=== PATIENT | female | born 1955 | race Caucasian/White ===

== ENCOUNTER 2017-11-30 04:12 | Emergency (ER) | payer MEDICARE ==
[~2017-11-30] VITALS: Ht 154.9 cm; Wt 63.5 kg
[~2017-11-30 04:12] MED LIST: AMLO10 PO; ATEN100 PO; ATEN50; FLUO10; FLUO20 PO; HYDACE5 PO; INSDET100 SQ; INSUASPI; INSUASPI SC; INSULANI; METF500; METF500 PO; NAPR500 PO; NITR100CA PO; RXHYDACE PO; SPIHYD; SPIHYD PO; TRAM50 PO; [UNRECOGNIZED DRUG - OTHER]
[2017-11-30] MEDS ORDERED: AMLO10 PO (04:36)
[2017-11-30] MEDS ORDERED: GABA300 PO (04:36)
[2017-11-30] MEDS ORDERED: MONT10T PO (04:36)
[2017-11-30] MEDS ORDERED: LISI5 PO (04:36)
[2017-11-30] MEDS ORDERED: METF500 PO (04:36)
[2017-11-30] MEDS ORDERED: PANT40 PO (04:36)
[2017-11-30] MEDS ORDERED: MELO7.5 PO (04:36)
[2017-11-30] MEDS ORDERED: LEVSOD50 PO (04:37)
[2017-11-30] MEDS ORDERED: CITA20 PO (04:37)
[2017-11-30] MEDS ORDERED: Roxicodone5 MG (04:37)
[2017-11-30] MEDS ORDERED: BACL10 (04:38)
[2017-11-30] MEDS ORDERED: ALBU90OI INH (04:38)
[2017-11-30] MEDS ORDERED: OXYC1TAB11 PO (04:38)
[2017-11-30] MEDS ORDERED: Norco 10-325 T1 EACH PO (06:23)
== END 2017-11-30 06:33 | disposition home or self-care (01) ==
LOC: ER 04:12
DX: M54.5 Low back pain (principal); G89.29 Other chronic pain; E11.9 Type 2 diabetes mellitus without complications; I10 Essential (primary) hypertension; F32.9 Major depressive disorder, single episode, unspecified; F17.200 Nicotine dependence, unspecified, uncomplicated
CPT/HCPCS: 72100; 99283

== ENCOUNTER 2017-12-09 14:12 | Emergency (ER) | payer MEDICARE ==
[~2017-12-09] VITALS: Ht 152.4 cm; Wt 65.8 kg
[~2017-12-09 14:12] MED LIST changes: +ALBU90OI INH; +BACL10; +CITA20 PO; +GABA300 PO; +LEVSOD50 PO; +LISI5 PO; +MELO7.5 PO; +MONT10T PO; +Norco 10-325 T1 EACH PO; +OXYC1TAB11 PO; +PANT40 PO; +Roxicodone5 MG
[2017-12-09] MEDS ORDERED: Ultram50 MG PO (15:24)
== END 2017-12-09 15:31 | disposition home or self-care (01) ==
LOC: ER 14:12
DX: M54.5 Low back pain (principal); G89.29 Other chronic pain; Z76.0 Encounter for issue of repeat prescription; Z88.2 Allergy status to sulfonamides; Z79.899 Other long term (current) drug therapy; Z79.84 Long term (current) use of oral hypoglycemic drugs; Z79.2 Long term (current) use of antibiotics; Z79.891 Long term (current) use of opiate analgesic; E11.9 Type 2 diabetes mellitus without complications; I10 Essential (primary) hypertension; F32.9 Major depressive disorder, single episode, unspecified; F17.200 Nicotine dependence, unspecified, uncomplicated
CPT/HCPCS: 99282

== ENCOUNTER 2018-12-20 22:24 | Inpatient (IN) | payer MEDICARE, OTHER ==
[~2018-12-20] VITALS: Ht 149.9 cm; Wt 68.0 kg
[~2018-12-20 22:24] MED LIST changes: +METF500C PO; +Ultram50 MG PO
[2018-12-20 23:20] LABS: BASOPHILS ABSOLUTE AUTO 0.06 K/mm3 (0.00-0.23); BASOPHILS PERCENT AUTO 1 % (0-2); EOSINOPHILS ABSOLUTE AUTO 0.07 K/mm3 (0.00-0.68); EOSINOPHILS PERCENT AUTO 1 % (0-6); Hematocrit 33.8 % (33.0-51.0); Hemoglobin 11.1 g/dL (11.5-16.0); IMMATURE GRAN ABSOLUTE AUTO 0.06 K/mm3 (0.00-0.10); IMMATURE GRAN PERCENT AUTO 1 % (0-1); LYMPHOCYTES ABSOLUTE AUTO 1.08 K/mm3 (0.84-5.20); LYMPHOCYTES PERCENT AUTO 14 % (21-46); MONOCYTES ABSOLUTE AUTO 0.94 K/mm3 (0.16-1.47); MONOCYTES PERCENT AUTO 12 % (4-13); Mean Corpuscular HGB 35.1 pg (26.0-34.0); Mean Corpuscular HGB Conc 32.8 g/dL (31.5-36.5); Mean Corpuscular Volume 107 fL (80-100); Mean Platelet Volume 9.8 fL (9.1-12.4); NEUTROPHILS ABSOLUTE AUTO 5.39 K/mm3 (1.96-9.15); NEUTROPHILS PERCENT AUTO 71 % (41-73); Platelet Count 200 K/mm3 (150-400); RDW Coefficient Variation 12.1 % (11.7-14.2); Red Blood Cell Count 3.16 M/mm3 (3.80-5.20)
[2018-12-20 23:37] LABS: Alanine Aminotransfer (ALT/SGP 29 U/L (12-78); Albumin/Globulin Ratio 0.8 (0.8-1.8); Alk Phos 119 U/L (50-136); Anion Gap 6 mmol/L (6-16); Aspartate Aminotrans (AST/SGOT 29 U/L (12-37); Bilirubin, Total 0.5 mg/dL (0.1-1.0); Blood Urea Nitrogen 18 mg/dL (8-24); CO2, Blood 29 mmol/L (21-32); Calcium, Blood 8.1 mg/dL (8.5-10.1); Chloride, Blood 102 mmol/L (98-108); Creatinine, Blood 0.86 mg/dL (0.40-1.00); Globulin, Blood 3.6 g/dL (2.2-4.0); Glomerular Filtration Rate >60 (60-); Glucose, Blood 171 mg/dL (70-99); Potassium, Blood 3.8 mmol/L (3.5-5.5); Sodium, Blood 137 mmol/L (136-145); Total Protein, Blood 6.6 g/dL (6.4-8.2)
[2018-12-21 01:02] LABS: Source, Urine Clean Catch
[2018-12-21 01:10] LABS: Appearance, Urine Clear (Clear); Bilirubin, Urine Neg (Neg); Blood, Urine 2+ (Neg); Color, Urine Yellow (P-Yellow); Glucose Qualitative, Urine Neg (Neg); Ketones, Urine 1+ (Neg); Leukocyte Esterase, Urine 1+ (Neg); Nitrite, Urine Neg (Neg); Protein, Urine 1+ (Neg); Urobilinogen, Urine NORM (Normal)
[2018-12-21 01:18] LABS: Bacteria Rare /hpf; Red Blood Cells, Urine Rare /hpf (0-2); Squamous Epithelial Cells Few /hpf (Few); White Blood Cells, Urine 0-2 /hpf (0-5)
--- NOTE | 2018-12-21 03:00 | NUR ---
RECEIVED HAND OFF FROM ER NURSE USING SBAR. TRANSPORTED TO ROOM VIA STRETCHER. TRANSFERED TO BED WITH FULL STAFF ASSISTANCE, TOLERATED WELL. LYING IN SEMI FOWLERS WITH EYES CLOSED. PT IS SOMULENT WITH SPASTIC MOVEMENTS NOTED TO ALL LIMBS. ORIENTED TO ROOM, CALL SYSTEM, AND POC, VOICES UNDERSTNDING. SL 20G PIV TO RIGHT HAND IS PATENT, FLUSHING WITH EASE. LEFT HAND 22G SL PIV IS PATENT, FLUSHING WITH EASE. CONTINENT OF BOWEL AND BLADDER, USES BEDPAN. DENIES PAIN, DISCOMFORT, OR FURTHER NEEDS AT THIS TIME. ADMISSION ASSESSMENT IN PROGRESS. SAFETY MEASURES IN PLACE. WILL CONTINUE TO MONITOR.
--- NOTE | 2018-12-21 06:40 | NUR ---
LYING IN LOW FOWLERS WITH EYES CLOSED. PAIN IS NOW MANAGED AFTER IV FENTANYL. BEDDING CHANGED AFTER INCONTINENT EPISODES AND DEPENDS PLACED. DENIES FURTHER NEEDS AT THIS TIME. WILL GIVE HAND OFF TO ONCOMING SHIFT USING SBAR.
--- NOTE | 2018-12-21 08:54 | NUR ---
DR OJEDA HERE TO SEE PT.
--- NOTE | 2018-12-21 12:59 | NUR ---
PT OUT OF ROOM FOR PROCEDURE WITH OTHER STAFF IN BED.
--- NOTE | 2018-12-21 13:26 | NUR ---
History, Chart, Medications and Allergies reviewed before start of procedure. Patient confirms NPO status and agrees with scheduled surgery.
--- NOTE | 2018-12-21 15:30 | NUR ---
12/21/18 1530 Kanchan Restrepo [id number] ASSUMING CARE OF PT AT THIS TIME FROM LUIS ALFREDO MALONEY RN.
--- NOTE | 2018-12-21 17:32 | NUR ---
1720 DR SÁNCHEZ NOTIFIED OF CBG RESULT OF 265 NEW ORDER TO GIVE 10 UNITS OF REGULAR INSULIN
--- NOTE | 2018-12-21 17:35 | NUR ---
WIGGLES TOES CAP REFILL WNL
--- NOTE | 2018-12-21 18:06 | NUR ---
PT BACK TO ROOM FROM PACU PT IS DROWSY BUT WAKES WITH VERBAL STIMULI. PT REPORTS NO NAUSEA AT THIS TIME. KIANA WRAP WITH SPLINT TO LEFT LEG. PT CAN WIGGLE TOES AND HAS GOOD CAP REFIL TO LEFT TOES. PAS APPLIED TO RIGHT LEG. PT ON 4L O2 NC.
--- NOTE | 2018-12-21 18:19 | NUR ---
SHIFT SUMMARY PT VERY SLEEPY THIS MORNING. PT CONFUSED AT TIMES, BUT ORIENTED TO SELF/SITUATION. PT WENT TO SURGERY THIS AFTERNOON AND ARRIVED BACK AT ABOUT 1800. PT DROWSY, BUT AWAKES TO VERBAL STIMULI. REPORTS DISCOMFORT AT SURGICAL SITE BUT WENT RIGHT BACK TO SLEEP. PACU NURSE REPORTS THAT SURGERY WENT WELL. PT IS INCONTINENT AND HAS BRIEF IN PLACE. BED ALARM IS ON.
[2018-12-22 05:27] LABS: BASOPHILS ABSOLUTE AUTO 0.02 K/mm3 (0.00-0.23); BASOPHILS PERCENT AUTO 0 % (0-2); EOSINOPHILS PERCENT AUTO 0 % (0-6); Hematocrit 30.2 % (33.0-51.0); IMMATURE GRAN ABSOLUTE AUTO 0.05 K/mm3 (0.00-0.10); IMMATURE GRAN PERCENT AUTO 1 % (0-1); LYMPHOCYTES PERCENT AUTO 17 % (21-46); MONOCYTES ABSOLUTE AUTO 1.26 K/mm3 (0.16-1.47); MONOCYTES PERCENT AUTO 17 % (4-13); Mean Corpuscular HGB 33.8 pg (26.0-34.0); Mean Corpuscular HGB Conc 33.1 g/dL (31.5-36.5); Mean Platelet Volume 9.4 fL (9.1-12.4); NEUTROPHILS ABSOLUTE AUTO 4.99 K/mm3 (1.96-9.15); NEUTROPHILS PERCENT AUTO 65 % (41-73); Platelet Count 199 K/mm3 (150-400); RDW Coefficient Variation 12.3 % (11.7-14.2); Red Blood Cell Count 2.96 M/mm3 (3.80-5.20); White Blood Cell Count 7.62 K/mm3 (4.00-11.30)
[2018-12-22 05:42] LABS: Mean Corpuscular Volume 102 fL (80-100)
[2018-12-22 06:05] LABS: Anion Gap 4 mmol/L (6-16); Blood Urea Nitrogen 14 mg/dL (8-24); Bun/Creatinine Ratio 24.4 (12.0-20.0); CO2, Blood 30 mmol/L (21-32); Calcium, Blood 7.5 mg/dL (8.5-10.1); Chloride, Blood 106 mmol/L (98-108); Creatinine, Blood 0.57 mg/dL (0.40-1.00); Glomerular Filtration Rate >60 (60-); Glucose, Blood 160 mg/dL (70-99); Potassium, Blood 3.7 mmol/L (3.5-5.5); Sodium, Blood 140 mmol/L (136-145)
--- NOTE | 2018-12-22 19:58 | NUR ---
SHIFT SUMMARY PT EATING AND DRINKING. PT VOIDING IN ATTENDS, ENC TO CALL TO USE BSC OR BEDPAN. PT WAS UP TO CHAIR EARLIER TODAY. PT BEEN ASSISTED BY RT TODAY. PT BEEN ASSISTED WITH ADL'S. PT BEEN AND HAD XRAY EARLIER TODAY. PT BEEN MED FOR PAIN. CALL LIGHT IN REACH, ALARM IN PLACE.
--- NOTE | 2018-12-23 07:51 | NUR ---
SHIFT SUMMARY PT A&O X4 T/O SHIFT. POD#2 L TIB/FIB ORIF; SPLINT AND KIANA WRAP CDI T/O SHIFT; LLE ELEVATED. EXT PWD, PT DENIES N/T, BRISK CAP REFILL. PAIN MANAGED PER EMAR. PT INDEPENDENTLY BED MOBILE. EXP WHEEZE BILAT THIS AM; TX PER RT. 1.5L O2 VIA NC. BED RAMÍREZ ASSIT AND ATTENDS CHANGED PRN. BLOOD SUGAR MANAGED PER EMAR/ORDERS. CALL LIGHT IN REACH; PT DEMONSTRATES USE. REPORT GIVEN TO DAY SHIFT RN.
--- NOTE | 2018-12-23 17:18 | NUR ---
SHIFT SUMMARY NO ACUTE CHANGES THIS SHIFT. VSS. LEFT ANKLE SPLINTED AND KIANA WRAP REMAINS CDI. PT HAS GOOD BED MOBILITY AND REPOSITIONS INDEP. PT/OT WORKING WITH PT AND PT USING WALKER AND GAIT BELT WITH 1 MOD ASSIST TO THE CHAIR. PT RECEIVING 2 OXYCODONE FOR PAIN AND DID RECEIVE X1 DOSE OF IV FENTANYL FOR SEVERE BREAKTHROUGH PAIN. MADELYN REG DIET. IV SL. NWB TO LEFT LEG. PLAN IS FOR PT TO GO TO SNF AT DISCHARGE. USES CALL LIGHT APPROPRIATELY.
--- NOTE | 2018-12-24 00:22 | NUR ---
ASSUMED CARE OF PT. PT LYING IN BED, APPEARS TO BE SLEEPING, RESP E/U. CALL LIGHT IN REACH, WILL CONT TO MONITOR.
[2018-12-24 05:33] LABS: BASOPHILS ABSOLUTE AUTO 0.08 K/mm3 (0.00-0.23); BASOPHILS PERCENT AUTO 1 % (0-2); EOSINOPHILS ABSOLUTE AUTO 0.23 K/mm3 (0.00-0.68); EOSINOPHILS PERCENT AUTO 3 % (0-6); Hematocrit 34.7 % (33.0-51.0); IMMATURE GRAN ABSOLUTE AUTO 0.08 K/mm3 (0.00-0.10); IMMATURE GRAN PERCENT AUTO 1 % (0-1); LYMPHOCYTES ABSOLUTE AUTO 2.78 K/mm3 (0.84-5.20); LYMPHOCYTES PERCENT AUTO 34 % (21-46); MONOCYTES ABSOLUTE AUTO 0.89 K/mm3 (0.16-1.47); MONOCYTES PERCENT AUTO 11 % (4-13); Mean Corpuscular HGB 34.1 pg (26.0-34.0); Mean Corpuscular HGB Conc 34.6 g/dL (31.5-36.5); NEUTROPHILS PERCENT AUTO 50 % (41-73); Platelet Count 261 K/mm3 (150-400); RDW Coefficient Variation 12.3 % (11.7-14.2); RDW Standard Deviation 44.3 fL (35.1-46.3); Red Blood Cell Count 3.52 M/mm3 (3.80-5.20); White Blood Cell Count 8.16 K/mm3 (4.00-11.30)
[2018-12-24 05:36] LABS: Mean Corpuscular Volume 99 fL (80-100)
[2018-12-24 06:08] LABS: Albumin, Blood 2.9 g/dL (3.4-5.0); Anion Gap 7 mmol/L (6-16); Blood Urea Nitrogen 14 mg/dL (8-24); Bun/Creatinine Ratio 26.5 (12.0-20.0); CO2, Blood 30 mmol/L (21-32); Calcium, Blood 8.4 mg/dL (8.5-10.1); Chloride, Blood 98 mmol/L (98-108); Creatinine, Blood 0.53 mg/dL (0.40-1.00); Glomerular Filtration Rate >60 (60-); Glucose, Blood 194 mg/dL (70-99); Magnesium, Blood 1.8 mg/dL (1.6-2.4); Phosphorus, Blood 3.1 mg/dL (2.5-4.9); Potassium, Blood 3.2 mmol/L (3.5-5.5); Sodium, Blood 135 mmol/L (136-145)
--- NOTE | 2018-12-24 06:34 | NUR ---
POD 3 S/P ORIF OF L TIBIA. PT VSS. DRESSIG CDI, CIRC CHECKS WNL. PAIN MGD PER EMAR W/REP RELIEF. PT ASSISTED W/BEDPAN/ATTENDS CHANGES PRN. PT USING CALL LIGHT FOR ASSISTANCE, WILL CONT TO MONITOR UNTIL REP GIVEN TO ONCOMING RN.
--- NOTE | 2018-12-24 10:27 | NUR ---
PAIN MANAGEMENT PT HAS COMPLAINED OF 10/10 PAIN SINCE BEGINNING OF THE SHIFT. NOC RN REPORTED THAT PAIN HAD BEEN WELL MANAGED WITH PO PERCOCET DURING THE NIGHT. FENTANYL, TORADOL AND DILAUDID USED IN ADDITION TO PERCOCET. PT REPORTED NO IMPROVEMENT IN PAIN MANAGEMENT. DR. MOORE WAS NOTIFIED OF PAIN MANAGEMENT ISSUES. HOME PERCOCET DOSAGE CLARIFIED WITH PT'S PHARMACY. WILL CONSULT PALLIATIVE CARE PER DR. MOORE'S REQUEST.
[2018-12-24] MEDS ORDERED: Percocet 10-321 EACH PO (10:58)
--- NOTE | 2018-12-24 14:51 | NUR ---
Initial palliative care consult: James is a 63 year old lady with a history of HTN, COPD, CM, depression, chronic pain, hypothyroidism, anxiety, insomnia and L ankle fixation. She reports that she fell at home attempting to get up and broke her left leg. She has a L tib/fib fracture and is POD 3 from having a tibula repair. She is in a cast. CMS is intact to her left toes. Cap refill 3-4 seconds. She reports her current pain level is 8/10. She states she had pain medication about an hour ago which usually helps decrease the pain level to 5/10. She takes pain medication at home for chronic pain which she states is "Constant pain all over my body." She reports that the lowest pain leve she gets to at home is 5/10. At home she takes oxycodone 10/325 1 PO Q6h prn pain, tramadol 50 mg PO Q6H prn pain and neurontin 300 mg TID. She is taking percocet 5/325 1-2 PO Q4H prn pain in the hospital. She also has IV fentanyl, PO dilaudid and IV toradol for alternate pain meds. She has been taking the percocet fairly routinely. She has received one dose of dilaudid, one dose of fentanyl and one dose of tordal over the past day. During our brief conversation she stated that "I'm not feeling up for a visit today, I'm just not thinking right." She requested that PC nurse return tomorrow for symptom review and managment. Suggested to nursing that toradol could be used Q6H prn more consistently as an adjunct to the percocet she has been taking. She has had one dose of tordal in the past 24 hours. Cold therapy and elevating her LLE could also be beneficial to decreasing her pain. Creatinine and GFR both are WNL. May also consider adding back her neurontin as she has not had this in the hospital. She takes 300 mg PO TID per the home medication rec. PC will plan to visit with pt tomorrow. Tordal will be discontinued tomorrow as this medication should only be taken for no more than 5 days.
--- NOTE | 2018-12-24 18:56 | NUR ---
SHIFT SUMMARY PT HAS TIB/FIB FX OF LEFT LEG, PT IS ON ROOM AIR, IV IN RIGHT FOREARM, SALINE LOCKED, HAD ORIF ON LEFT TIB, RESET LEFT FIBULA, WHEEZES IN LUNGS, ALERT AND ORIENTEDX3, POST-OP DAY 3. NON-WEIGHT BEARING AT THIS TIME.
--- NOTE | 2018-12-24 19:46 | NUR ---
SHIFT SUMMARY PAIN HAS BEEN DIFFICULT TO MANAGE THIS SHIFT. PT HAS HAD PO AND IV PAIN MEDICATION. PT IS A 1 ASSIST WHEN OOB. VSS. PLAN FOR POSSIBLE DISCHARGE TO SNF TOMORROW.
--- NOTE | 2018-12-25 05:00 | NUR ---
0500: PT APPEARS TEARFUL AND HIGHLY ANXIOUS MAKING STATEMENTS OF LOST ALL [facility]. PT PAINFUL AFTER LAST BSC USE AND IS MEDICATED WITH PO PERCOCET PER ORDERS. RN SPEAKS WITH PT SEVERAL MINUTES AND LEAVE PT TO TRY AND RELAX WITH CALL LIGHT IN REACH.
[2018-12-25 05:26] LABS: BASOPHILS ABSOLUTE AUTO 0.08 K/mm3 (0.00-0.23); BASOPHILS PERCENT AUTO 1 % (0-2); EOSINOPHILS ABSOLUTE AUTO 0.25 K/mm3 (0.00-0.68); EOSINOPHILS PERCENT AUTO 3 % (0-6); Hematocrit 33.9 % (33.0-51.0); Hemoglobin 11.6 g/dL (11.5-16.0); IMMATURE GRAN ABSOLUTE AUTO 0.14 K/mm3 (0.00-0.10); IMMATURE GRAN PERCENT AUTO 1 % (0-1); LYMPHOCYTES PERCENT AUTO 34 % (21-46); MONOCYTES ABSOLUTE AUTO 0.96 K/mm3 (0.16-1.47); MONOCYTES PERCENT AUTO 10 % (4-13); Mean Corpuscular HGB 33.8 pg (26.0-34.0); Mean Corpuscular HGB Conc 34.2 g/dL (31.5-36.5); Mean Corpuscular Volume 99 fL (80-100); NEUTROPHILS ABSOLUTE AUTO 5.13 K/mm3 (1.96-9.15); NEUTROPHILS PERCENT AUTO 52 % (41-73); Platelet Count 332 K/mm3 (150-400); RDW Standard Deviation 43.8 fL (35.1-46.3); Red Blood Cell Count 3.43 M/mm3 (3.80-5.20); White Blood Cell Count 9.86 K/mm3 (4.00-11.30)
[2018-12-25 05:44] LABS: Albumin, Blood 2.9 g/dL (3.4-5.0); Anion Gap 8 mmol/L (6-16); Blood Urea Nitrogen 23 mg/dL (8-24); Bun/Creatinine Ratio 33.8 (12.0-20.0); CO2, Blood 27 mmol/L (21-32); Calcium, Blood 8.5 mg/dL (8.5-10.1); Chloride, Blood 96 mmol/L (98-108); Creatinine, Blood 0.68 mg/dL (0.40-1.00); Glomerular Filtration Rate >60 (60-); Glucose, Blood 165 mg/dL (70-99); Magnesium, Blood 1.6 mg/dL (1.6-2.4); Phosphorus, Blood 4.3 mg/dL (2.5-4.9); Potassium, Blood 3.3 mmol/L (3.5-5.5); Sodium, Blood 131 mmol/L (136-145)
--- NOTE | 2018-12-25 08:03 | NUR ---
SUMMARY: POD 4 ORIF LEFT TIB/FIB FX BY DR. OJEDA. VSS, AFEBRILE, PAIN WELL MANAGED WITH 1 TAB PO PERCOCET X3 THIS SHIFT. PT TRANSFERS WELL WITH 1 PERSON ASSIST TO BSC. OCCASIONALLY WHEEZY, MANAGED WITH NEBS AND LASIX, ROOM AIR. PT HAS EPISODES OF SEVERE ANXIETY AT TIMES AND STATES SHE HAS PREVIOUSLY TAKEN MEDICATIONS FOR ANXIETY. CONTINUE TO ENCOURAGE OOB ACTIVITY AND ANTICIPATE DC TO SNF LATER THIS DAY.
[2018-12-25] MEDS ORDERED: TRAZ150T57 PO (10:13)
[2018-12-25] MEDS ORDERED: TIOT18 INH (10:17)
--- NOTE | 2018-12-25 12:35 | NUR ---
DISCHARGE REPORT CALLED TO ANURADHA AT [facility] PRIOR TO PT DISCHARGE. REPORTED TO ANURADHA THAT PT WOULD NEED A FOLLOW-UP WITH DR. OJEDA IN 1 WEEK. TRANSPORT ARRIVED AND PT LEFT AT APPROXIMATELY 1233. BELONGINGS RETURNED TO PATIENT. ORDERS AND SCRIPT SENT WITH PATIENT TO [facility].
== END 2018-12-25 12:30 | DRG 492 ==
LOC: ER 22:24 → SURS 12-21 02:58
PROVIDERS: Emergency Medicine; Internal Medicine; Orthopaedic Surgery; ADMIT Family Medicine
PROC: 0QSKXZZ Reposition Left Fibula, External Approach (ICD-10-PCS; 2018-12-21)
PROC: 0QSH04Z Reposition Left Tibia with Internal Fixation Device, Open Approach (ICD-10-PCS; principal; 2018-12-21 13:30)
PROC: 0QPH04Z Removal of Internal Fixation Device from Left Tibia, Open Approach (ICD-10-PCS; 2018-12-21 13:30)
DX: S82.202A Unspecified fracture of shaft of left tibia, initial encounter for closed fracture (principal); G92 Toxic encephalopathy; S82.402A Unspecified fracture of shaft of left fibula, initial encounter for closed fracture; I10 Essential (primary) hypertension; J44.9 Chronic obstructive pulmonary disease, unspecified; F32.9 Major depressive disorder, single episode, unspecified; F17.210 Nicotine dependence, cigarettes, uncomplicated; Z99.81 Dependence on supplemental oxygen; W18.30XA Fall on same level, unspecified, initial encounter; Y92.003 Bedroom of unspecified non-institutional (private) residence as the place of occurrence of the external cause; G89.29 Other chronic pain; G47.00 Insomnia, unspecified; I25.10 Atherosclerotic heart disease of native coronary artery without angina pectoris; Z91.19 Patient's noncompliance with other medical treatment and regimen; E11.65 Type 2 diabetes mellitus with hyperglycemia; E03.9 Hypothyroidism, unspecified; M41.9 Scoliosis, unspecified; K59.00 Constipation, unspecified
CPT/HCPCS: 36415; 71046; 73600; 73610; 76000; 80048; 80053; 80069; 81001; 82947; 83735; 83880; 85025; 87077; 87086; 87186; 93005; 93010; 93306; 94640; 94760; 97110; 97162; 97167; 97530; 97535; 99284-25; A9270-GY; C1713; C1769; C9113; J0690; J0696; J1100; J1650; J1815; J1885; J1940; J2250; J2405; J2704; J3010; J3370; J3480; J7030; J7120; Q0163

== ENCOUNTER 2019-01-04 06:07 | Day surgery (SDC) | payer MEDICARE, OTHER ==
[~2019-01-04] VITALS: Ht 152.4 cm; Wt 68.1 kg
[~2019-01-04 06:07] MED LIST changes: +8 HOUR PAIN RE650 MG PO; +ASPI325EC PO; +Colace100 MG PO; +FURO40 PO; +METOPROLOL TA37.5 MG PO; +PANT20 PO; +POTCHL20ER PO; +Percocet 10-321 EACH PO; +TIOT18 INH; +TRAZ150T57 PO
--- NOTE | 2019-01-04 10:08 | NUR ---
01/04/19 1009 Lizette Bass PT WITH "10/10" PAIN IN BACK, BILAT HIPS, LEFT LEG. RX'D WITH IV FENTANYL. PT'S BASELINE UPON ARRIVAL TO PREOP WAS "10/10" PER ADMITTING NURSE Juvencio THOMAS. PT CANNOT SIT IN THE RECLINER DUE TO BACK AND HIP PAIN PER PT, SO PT REMAINS IN RECOVERY ON RIGHT SIDE WITH LEFT LEG ELEVATED ON A PILLOW AND ICE ON IT. CONT TO MONITOR.
== END 2019-01-04 10:58 | disposition home or self-care (01) ==
LOC: ORSCSDS 06:07
PROVIDERS: Orthopaedic Surgery
PROC: 0QSK04Z Reposition Left Fibula with Internal Fixation Device, Open Approach (ICD-10-PCS; principal; 2019-01-04 07:30)
PROC: 0QPK04Z Removal of Internal Fixation Device from Left Fibula, Open Approach (ICD-10-PCS; principal; 2019-01-04 07:30)
DX: S82.202D Unspecified fracture of shaft of left tibia, subsequent encounter for closed fracture with routine healing (principal); S82.402D Unspecified fracture of shaft of left fibula, subsequent encounter for closed fracture with routine healing; S82.892K Other fracture of left lower leg, subsequent encounter for closed fracture with nonunion; I10 Essential (primary) hypertension; E11.40 Type 2 diabetes mellitus with diabetic neuropathy, unspecified; E03.9 Hypothyroidism, unspecified; B19.20 Unspecified viral hepatitis C without hepatic coma; J44.9 Chronic obstructive pulmonary disease, unspecified; F17.210 Nicotine dependence, cigarettes, uncomplicated; Z79.899 Other long term (current) drug therapy
CPT/HCPCS: 82947; C1713; J0690; J1100; J1885; J2250; J2405; J2704; J3010; J3370; J7120

== ENCOUNTER → 2019-03-08 | Outpatient (CLI) | payer MEDICARE, OTHER ==
[~2019-03-08] MED LIST changes: -8 HOUR PAIN RE650 MG PO; +BACL20 PO; +BENADRYL25 MG PO; +Citalopram HBr20 MG PO; -Colace100 MG PO; +DOCU100 PO; +Milk Of Ma400 MG/5 M PO; +Mobic15 MG PO; +ONDA4ODT MM; +OXYB5 PO; +Percocet 5-3251 EACH PO; +Prinivil5 MG PO; +SANTYL30 GM TOP; +TUMS500 MG PO; +Tylenol325 MG PO; +VARE1
[2019-03-09 12:17] LABS: Appearance, Urine Clear (Clear); Bilirubin, Urine Neg (Neg); Blood, Urine Neg (Neg); Color, Urine Yellow (P-Yellow); Glucose Qualitative, Urine Neg (Neg); Ketones, Urine 1+ (Neg); Leukocyte Esterase, Urine 1+ (Neg); Nitrite, Urine Neg (Neg); Protein, Urine 1+ (Neg); Specific Gravity, Urine 1.015 (1.003-1.022); Urobilinogen, Urine NORM (Normal)
[2019-03-09 12:45] LABS: Bacteria Rare /hpf; Red Blood Cells, Urine 0-2 /hpf (0-2); Squamous Epithelial Cells Mod /hpf (Few)
[2019-03-09 12:46] LABS: Calcium Oxalate Crystals Many /hpf
== END | disposition home or self-care (01) ==
LOC: LAB 20:00 → LAB SHORT 20:00
DX: R10.9 Unspecified abdominal pain (principal)
CPT/HCPCS: 81001; 87086

== ENCOUNTER 2019-04-20 00:42 | Day surgery (SDC) | payer MEDICARE, OTHER ==
[~2019-04-20 00:42] MED LIST changes: -BACL20 PO; -BENADRYL25 MG PO; -Citalopram HBr20 MG PO; -Milk Of Ma400 MG/5 M PO; -Mobic15 MG PO; -ONDA4ODT MM; -OXYB5 PO; -Prinivil5 MG PO; -SANTYL30 GM TOP; -TUMS500 MG PO; -VARE1
== END 2019-04-20 22:37 | disposition home or self-care (01) ==
LOC: WOUND 00:42
DX: E11.622 Type 2 diabetes mellitus with other skin ulcer (principal); L97.821 Non-pressure chronic ulcer of other part of left lower leg limited to breakdown of skin; E11.40 Type 2 diabetes mellitus with diabetic neuropathy, unspecified; I10 Essential (primary) hypertension; F17.210 Nicotine dependence, cigarettes, uncomplicated; Z88.8 Allergy status to other drugs, medicaments and biological substances
CPT/HCPCS: Q4196

== ENCOUNTER 2019-05-26 17:15 | Inpatient (IN) | payer MEDICARE, OTHER ==
[~2019-05-26] VITALS: Ht 160 cm; Wt 59.8 kg
[2019-05-26 17:58] LABS: BASOPHILS ABSOLUTE AUTO 0.04 K/mm3 (0.00-0.23); BASOPHILS PERCENT AUTO 0 % (0-2); EOSINOPHILS ABSOLUTE AUTO 0.02 K/mm3 (0.00-0.68); EOSINOPHILS PERCENT AUTO 0 % (0-6); Hematocrit 43.4 % (33.0-51.0); Hemoglobin 14.9 g/dL (11.5-16.0); IMMATURE GRAN ABSOLUTE AUTO 0.05 K/mm3 (0.00-0.10); IMMATURE GRAN PERCENT AUTO 0 % (0-1); LYMPHOCYTES ABSOLUTE AUTO 1.66 K/mm3 (0.84-5.20); LYMPHOCYTES PERCENT AUTO 14 % (21-46); MONOCYTES ABSOLUTE AUTO 0.81 K/mm3 (0.16-1.47); MONOCYTES PERCENT AUTO 7 % (4-13); Mean Corpuscular HGB 33.4 pg (26.0-34.0); Mean Corpuscular HGB Conc 34.3 g/dL (31.5-36.5); Mean Corpuscular Volume 97 fL (80-100); Mean Platelet Volume 10.5 fL (9.1-12.4); NEUTROPHILS ABSOLUTE AUTO 9.09 K/mm3 (1.96-9.15); NEUTROPHILS PERCENT AUTO 78 % (41-73); Platelet Count 350 K/mm3 (150-400); RDW Coefficient Variation 12.3 % (11.7-14.2); Red Blood Cell Count 4.46 M/mm3 (3.80-5.20); White Blood Cell Count 11.67 K/mm3 (4.00-11.30)
[2019-05-26 18:15] LABS: Alanine Aminotransfer (ALT/SGP 26 U/L (12-78); Albumin, Blood 3.8 g/dL (3.4-5.0); Alk Phos 116 U/L (50-136); Anion Gap 9 mmol/L (6-16); Aspartate Aminotrans (AST/SGOT 24 U/L (12-37); Bilirubin, Total 0.4 mg/dL (0.1-1.0); Blood Urea Nitrogen 29 mg/dL (8-24); Bun/Creatinine Ratio 33.1 (12.0-20.0); CO2, Blood 24 mmol/L (21-32); Calcium, Blood 9.1 mg/dL (8.5-10.1); Chloride, Blood 105 mmol/L (98-108); Creatinine, Blood 0.88 mg/dL (0.40-1.00); Free Thyroxine 1.16 ng/dL (0.70-1.60); Globulin, Blood 3.9 g/dL (2.2-4.0); Glomerular Filtration Rate >60 (60-); Glucose, Blood 186 mg/dL (70-99); Potassium, Blood 3.3 mmol/L (3.5-5.5); Salicylate 3.3 mg/dL (2.8-20.0); Sodium, Blood 138 mmol/L (136-145); Total Protein, Blood 7.7 g/dL (6.4-8.2); Troponin I <0.015 ng/mL (0.000-0.040)
[2019-05-26 18:19] LABS: PCO2 Arterial 35.8 mmHg (35-45); PO2 Arterial 93.1 mmHg (80-100); pH Blood Arterial 7.37 (7.35-7.45)
[2019-05-26 18:20] LABS: Thyroid Stimulating Hormone 0.437 uIU/mL (0.360-4.800)
[2019-05-26 18:27] LABS: Acetaminophen, Random <2.0 ug/mL (10.0-30.0)
[2019-05-26 18:57] LABS: Source, Urine Catheter
[2019-05-26 19:02] LABS: Bilirubin, Urine Neg (Neg); Blood, Urine 1+ (Neg); Glucose Qualitative, Urine Neg (Neg); Ketones, Urine 2+ (Neg); Leukocyte Esterase, Urine Neg (Neg); Nitrite, Urine Neg (Neg); Protein, Urine 2+ (Neg); Specific Gravity, Urine 1.015 (1.003-1.022); Urobilinogen, Urine NORM (Normal)
[2019-05-26 19:12] LABS: Appearance, Urine Clear (Clear); Color, Urine Yellow (P-Yellow)
[2019-05-26 19:14] LABS: Red Blood Cells, Urine 0-2 /hpf (0-2); White Blood Cells, Urine 0-2 /hpf (0-5)
[2019-05-26 19:15] LABS: Bacteria Few /hpf; Squamous Epithelial Cells Few /hpf (Few)
[2019-05-26 19:19] LABS: U Amphetamine Screen Not Detected; U Barbituate Screen Not Detected; U Benzodiazapine Screen Not Detected; U Buprenorphine Screen Not Detected; U Cannabinoids Screen Not Detected; U Cocaine Screen Not Detected; U Methadone Screen Not Detected; U Methamphetamine Screen Not Detected; U Opiates Screen Not Detected; U Oxycodone Screen Not Detected; U Phencyclidine Screen Not Detected; U Propoxyphene Screen Not Detected
[2019-05-26] MEDS ORDERED: OXYB5 PO (21:11)
[2019-05-26] MEDS ORDERED: BACL20 PO (21:11)
[2019-05-26] MEDS ORDERED: Prinivil5 MG PO (21:12)
[2019-05-26] MEDS ORDERED: Citalopram HBr20 MG PO (21:12)
[2019-05-26] MEDS ORDERED: TIOT18 INH (21:13)
[2019-05-26] MEDS ORDERED: SANTYL30 GM TOP (21:14)
[2019-05-26] MEDS ORDERED: METF500 PO (21:14)
[2019-05-26] MEDS ORDERED: AMLO10 PO (21:15)
[2019-05-26] MEDS ORDERED: TRAZ150T57 PO (21:16)
--- NOTE | 2019-05-26 22:56 | NUR ---
ADMISSION: REPORT RECEIVED FROM CADEN Almonte RN IN ED. PT ARRIVED TO U-09 AT APPROX 2200. ON ARRIVAL, THE PT IS SLEEPING. SHE AWAKENS ONLY BRIEFLY TO STATE THAT HER "RIGHT LEG HURTS" & THEN QUICKLY RESUMES SLEEPING. LS ARE CLEAR T/O, PT ON RA W/ O2 SATS > 92%. MONITOR SHOWS SR W/ PACs, HR 80s. PT HAS NO GI COMPLAINTS. SUTTON PATENT/ DRAINING TO GRAVITY. PT's EYES & NOSE ARE SWOLLEN & BRUISED, MECHANISM OF INJURY PRIOR TO ADMISSION IS UNKNOWN. HEAD & FACIAL CTs HAVE BEEN COMPLETED. WILL CONTINUE TO MONITOR & UPDATE NEEDED.
--- NOTE | 2019-05-27 01:01 | NUR ---
RECEIVED REPORT FROM GERMAN RAM AND ASSUMING PT CARE. PT IS RESTING IN BED WITH EYES CLOSED, OCCASIONALLY CALLING OUT "OW, OWIE". PLAN TO COMMUNICATE COMPLAINTS OF PAIN TO HOSPITALIST, MESSAGE LEFT AND AWAITING RETURN CALL. BED ALARM ON AND WILL MONITOR CLOSELY.
[2019-05-27 03:42] LABS: Hematocrit 39.1 % (33.0-51.0); Hemoglobin 13.4 g/dL (11.5-16.0); Mean Corpuscular HGB 33.3 pg (26.0-34.0); Mean Corpuscular HGB Conc 34.3 g/dL (31.5-36.5); Mean Corpuscular Volume 97 fL (80-100); Mean Platelet Volume 10.2 fL (9.1-12.4); Platelet Count 356 K/mm3 (150-400); RDW Coefficient Variation 12.5 % (11.7-14.2); RDW Standard Deviation 44.7 fL (35.1-46.3); Red Blood Cell Count 4.02 M/mm3 (3.80-5.20); White Blood Cell Count 11.24 K/mm3 (4.00-11.30)
[2019-05-27 03:59] LABS: Alanine Aminotransfer (ALT/SGP 22 U/L (12-78); Albumin, Blood 3.2 g/dL (3.4-5.0); Alk Phos 95 U/L (50-136); Anion Gap 8 mmol/L (6-16); Aspartate Aminotrans (AST/SGOT 17 U/L (12-37); Bilirubin, Total 0.5 mg/dL (0.1-1.0); Blood Urea Nitrogen 25 mg/dL (8-24); Bun/Creatinine Ratio 37.7 (12.0-20.0); CO2, Blood 21 mmol/L (21-32); Calcium, Blood 8.1 mg/dL (8.5-10.1); Chloride, Blood 114 mmol/L (98-108); Creatinine, Blood 0.66 mg/dL (0.40-1.00); Globulin, Blood 3.3 g/dL (2.2-4.0); Glomerular Filtration Rate >60 (60-); Glucose, Blood 125 mg/dL (70-99); Potassium, Blood 3.5 mmol/L (3.5-5.5); Sodium, Blood 143 mmol/L (136-145); Total Protein, Blood 6.5 g/dL (6.4-8.2)
--- NOTE | 2019-05-27 06:00 | NUR ---
SHIFT SUMMARY PT HAS BEEN RESTLESS THROUGH SHIFT, COMPLAINS OF PAIN AND YELLS "OW, OW, OWIE" IN BETWEEN RESTING. MEDICATED PER PRN ORDER, SEE EMAR. PT IS ORIENTED TO SELF ONLY, FREQUENTLY REORIENTED AND UNABLE TO REPEAT BACK INFORMATION. FOLLOWING SIMPLE COMMANDS AFTER REPEATED REQUESTS. NS RUNNING AT 75 ML/HR TO R FA IV. BED ALARM ON AND CALL LIGHT IN REACH. WILL REPORT OFF TO DAY SHIFT RN.
--- NOTE | 2019-05-27 07:24 | NUR ---
The pt is alert, cooperative and conversant. She readily states that she cannot remember where she is nor why she came in here. She states that she hasn't eaten for 3 days, nor has her dog eaten for 3 days. States that her dog is in police custody. She remembers some details about her living conditinos, but does not recall all the recent information in the past 24 hours. Does not know why she has pain in her legs or bruises on her eyes. States "I must have fallen or something." She is restless, and she states this readily. She is eating yogurt. States that she is normally "incontinent" and asks if we have depends that she can use. States that she can't tell when she needs to use the toilet, but is aware of it after she has been incontinent of urine. She is repeatedly saying that the rios catheter is hurting her and that she can't "stand it anymore". Concern for patient safety that she might pull on it in a moment of being unable to remember what it is and cause herself harm. Creatinine and GFR noted WNL. The pt is receiving IV fluids and readily taking in food and and drink. Rios catheter was dc'd per nurse-driven protocol.
--- NOTE | 2019-05-27 08:57 | NUR ---
informe of hr of brief hr 178, pt back to st 110 when checked, denied any current pain or other symptoms but stated she had been aware during the event, stated she was concerned r/stay in hospital, staye with pt until she was able to rest/relax
[2019-05-27] MEDS ORDERED: BENADRYL25 MG PO (09:55)
[2019-05-27] MEDS ORDERED: ONDA4ODT MM (09:57)
[2019-05-27] MEDS ORDERED: GABA300 PO (09:57)
[2019-05-27] MEDS ORDERED: VARE1 (09:57)
[2019-05-27] MEDS ORDERED: TUMS500 MG PO (09:58)
[2019-05-27] MEDS ORDERED: Milk Of Ma400 MG/5 M PO (09:58)
[2019-05-27] MEDS ORDERED: Mobic15 MG PO (09:59)
--- NOTE | 2019-05-27 18:48 | NUR ---
down for xray, no results yet, resting comfortably, call light in reach, able to make needs known, treated as prescribed, pain controlled with medication, still confused at times, will share report with day shift, alarm on bed
--- NOTE | 2019-05-28 01:42 | NUR ---
PATIENT HAS RESIDUAL WEAKNESS ON RIGHT SIDE FROM OLD CVA
--- NOTE | 2019-05-28 05:22 | NUR ---
SHIFT SUMMARY ASSUMED CARE OF PT AT 1900, PT AWAKE, A&O LYING IN BED. PT HAS SIGNIFICANT FACIAL BRUISING FROM PRE-ADMIT EVENT WHICH SHE CANNOT RECALL. PT'S MEMORY IS SPOTTY. PT WAS MEDICATED AND TREATED PER MD ORDER AND UNIT PROTOCOL. VITALS REMAINED STABLE EXCEPT FOR A 5-MINUTE RUN OF SVT AT 164 BPM AT APPROX 2325 HRS. ORDER OBTAINED FOR TELE, WELL CHEM PROFILE AND MAGNESIUM SOON AFTERWARDS. PT HAD SUTTON DC'D EARLY IN THE DAY, IS CURRENTLY INCONTINENT OF URINE X 5 THIS SHIFT. WILL CONTINUE TO MONITOR UNTIL PASSING CARE AND REPORT TO ONCOMING SHIFT. BED LOCKED & LOW, CALL LIGHT W/IN REACH.
[2019-05-28 06:52] LABS: Alanine Aminotransfer (ALT/SGP 22 U/L (12-78); Albumin, Blood 3.1 g/dL (3.4-5.0); Albumin/Globulin Ratio 0.9 (0.8-1.8); Alk Phos 97 U/L (50-136); Anion Gap 5 mmol/L (6-16); Aspartate Aminotrans (AST/SGOT 24 U/L (12-37); Bilirubin, Total 0.5 mg/dL (0.1-1.0); Blood Urea Nitrogen 12 mg/dL (8-24); Bun/Creatinine Ratio 19.9 (12.0-20.0); CO2, Blood 27 mmol/L (21-32); Calcium, Blood 8.6 mg/dL (8.5-10.1); Chloride, Blood 107 mmol/L (98-108); Globulin, Blood 3.4 g/dL (2.2-4.0); Glomerular Filtration Rate >60 (60-); Glucose, Blood 144 mg/dL (70-99); Magnesium, Blood 1.3 mg/dL (1.6-2.4); Potassium, Blood 3.5 mmol/L (3.5-5.5); Sodium, Blood 139 mmol/L (136-145); Total Protein, Blood 6.5 g/dL (6.4-8.2)
--- NOTE | 2019-05-28 10:51 | NUR ---
PCU DAYSHIFT ASSUMED CARE OF PT APPROX 0700. PT ALERT AND ORIENTED TO SELF, PLACE, SITUATION AND ABLE TO FOLLOW DIRECTIONS. VITAL SIGNS STABLE. ASSESSMENT COMPLETED. EDUCATED PT ON UTILIZING BEDSIDE COMMODE WHEN POSSIBLE. PT AGREED TO DO THIS. PT ABLE TO GET UP TOBEDSIDE COMMODE WITH FWW AND ONE PERSON. PT REPORTS SOME INCREASED PAIN THIS MORNING. PROVIDED PT WITH HEATING PAD AND PRN PAIN MEDICATIONS PER EMAR. PT ABLE TO EAT BREKFAST THIS MORNING AND TOOLERATED WELL. BED IN LOW POSITION, CALL LIGHT IN REACCH AND PT DENIES ANY NEEDS. WILL CONTINUE TO MONITOR.
--- NOTE | 2019-05-28 14:47 | NUR ---
NEW ROOM RECIEVED NEW ROOM ASSIGNMENT FOR PT. NOTIFIED PT. CALLED REPROT TO RECIEVING RN. PT TO BE ESCORTED TO NEW ROOM VIA WHEELCHAIR BY PEER STAFF MEMBER.
--- NOTE | 2019-05-28 17:13 | NUR ---
PT ARRIVED ON THE FLOOR FROM PCU THIS AFTERNOON. PT CALM AND COOPERATIVE WITH CARE. PT IN PAIN THIS AFTERNOON, MEDICATED PER EMAR. PT USES CALL LIGHT APPROPRIATELY. PT WATCHING TELEVISION, NO FURTHER NEEDS STATED AT THIS TIME, CALL LIGHT IN REACH, WILL CONTINUE TO MONITOR.
[2019-05-29 05:02] LABS: BASOPHILS ABSOLUTE AUTO 0.04 K/mm3 (0.00-0.23); BASOPHILS PERCENT AUTO 1 % (0-2); EOSINOPHILS PERCENT AUTO 2 % (0-6); Hematocrit 34.7 % (33.0-51.0); Hemoglobin 11.7 g/dL (11.5-16.0); IMMATURE GRAN ABSOLUTE AUTO 0.03 K/mm3 (0.00-0.10); IMMATURE GRAN PERCENT AUTO 1 % (0-1); LYMPHOCYTES ABSOLUTE AUTO 2.17 K/mm3 (0.84-5.20); LYMPHOCYTES PERCENT AUTO 43 % (21-46); MONOCYTES ABSOLUTE AUTO 0.76 K/mm3 (0.16-1.47); MONOCYTES PERCENT AUTO 15 % (4-13); Mean Corpuscular HGB Conc 33.7 g/dL (31.5-36.5); Mean Platelet Volume 9.8 fL (9.1-12.4); NEUTROPHILS PERCENT AUTO 39 % (41-73); Platelet Count 263 K/mm3 (150-400); RDW Coefficient Variation 12.5 % (11.7-14.2); RDW Standard Deviation 47.1 fL (35.1-46.3); Red Blood Cell Count 3.44 M/mm3 (3.80-5.20)
[2019-05-29 05:03] LABS: Mean Corpuscular Volume 101 fL (80-100)
--- NOTE | 2019-05-29 06:13 | NUR ---
SHIFT SUMMARY NO ACUTE EVENTS OVER NIGHT. PATIENT REQUIRING FENTANYL MULTIPLE TIMES THROUGHOUT THE DESIGNATED BROKER. PATIENT STATED THAT PERCOCET HAD "DONE NOTHING" FOR HER. UP 1 PERSON ASSIST TO BSC. PATIENT CAN NOT TELL ME HOW SHE RECEIVED THE BRUISING ON HER FACE OR BODY. PATIENT STATES SHE DOES NOT KNOW HOW SHE GOT THE PRESSURE WOUNDS ON HER LEFT FOOT/ANKLE. DRESSING C/D/I. WILL CONTINUE TO MONITOR AND REPORT TO ONCOMING SHIFT.
--- NOTE | 2019-05-29 17:34 | NUR ---
SHIFT SUMMARY- PT A/OX4, 1 ASSIST UP TO BSC. PT MEDICATED T/O THE FOR PAIN TO RIGHT HIP AND RIGHT SHOULDER. LIDOCAINE PATCH ADDED. LS COARSE WITH OCC WHEEZE, BREATHING TX X2 THIS SHIFT, HARSH NPC. TELE NSR AT 69, TELE DC'D. DRESSING CHANED TO LEFT HARRIS AND LEFT 1ST AND 2ND TOE. PT AWAITING PLACEMENT. NO OTHER ACUTE CHANGES THIS SHIFT.
[2019-05-30 05:01] LABS: BASOPHILS ABSOLUTE AUTO 0.07 K/mm3 (0.00-0.23); BASOPHILS PERCENT AUTO 1 % (0-2); EOSINOPHILS ABSOLUTE AUTO 0.12 K/mm3 (0.00-0.68); EOSINOPHILS PERCENT AUTO 2 % (0-6); Hematocrit 33.9 % (33.0-51.0); Hemoglobin 11.4 g/dL (11.5-16.0); IMMATURE GRAN ABSOLUTE AUTO 0.04 K/mm3 (0.00-0.10); IMMATURE GRAN PERCENT AUTO 1 % (0-1); LYMPHOCYTES ABSOLUTE AUTO 2.92 K/mm3 (0.84-5.20); LYMPHOCYTES PERCENT AUTO 48 % (21-46); MONOCYTES ABSOLUTE AUTO 0.75 K/mm3 (0.16-1.47); MONOCYTES PERCENT AUTO 12 % (4-13); Mean Corpuscular HGB 33.7 pg (26.0-34.0); Mean Corpuscular HGB Conc 33.6 g/dL (31.5-36.5); Mean Corpuscular Volume 100 fL (80-100); Mean Platelet Volume 10.2 fL (9.1-12.4); NEUTROPHILS ABSOLUTE AUTO 2.16 K/mm3 (1.96-9.15); NEUTROPHILS PERCENT AUTO 36 % (41-73); Platelet Count 250 K/mm3 (150-400); RDW Coefficient Variation 12.6 % (11.7-14.2); RDW Standard Deviation 46.4 fL (35.1-46.3); Red Blood Cell Count 3.38 M/mm3 (3.80-5.20); White Blood Cell Count 6.06 K/mm3 (4.00-11.30)
[2019-05-30 05:19] LABS: Anion Gap 5 mmol/L (6-16); Blood Urea Nitrogen 21 mg/dL (8-24); Bun/Creatinine Ratio 31.1 (12.0-20.0); CO2, Blood 30 mmol/L (21-32); Calcium, Blood 8.6 mg/dL (8.5-10.1); Chloride, Blood 105 mmol/L (98-108); Creatinine, Blood 0.68 mg/dL (0.40-1.00); Glomerular Filtration Rate >60 (60-); Glucose, Blood 180 mg/dL (70-99); Potassium, Blood 4.4 mmol/L (3.5-5.5); Sodium, Blood 140 mmol/L (136-145)
--- NOTE | 2019-05-30 05:28 | NUR ---
SHIFT SUMMARY NO ACUTE EVENTS OVERNIGHT. PATIENT REQUESTED ALL MEDICATIONS AVAILABLE THROUGHOUT THE NIGHT. PATIENT COMPLAINING OF SHOB, BREATHING TREATMENT GIVEN. PATIENT FOUND TO HAVE CRACKLES IN LUNG BASES AND APPEARS TO BE POSITIVE ON HER FLUID INTAKE. WOUND DRESSING C/D/I. 1 PERSON ASSIST TO BSC. WILL CONTINUE TO MONITOR AND REPORT TO ONCOMING SHIFT.
--- NOTE | 2019-05-30 09:00 | NUR ---
PT PLEASANT COOP A/O. STATES SOME PAIN R HIP, L FOOT, AND GENERAL. MED PER EMAR. STATES HOMELESS AT THIS TIME. IN CAR, BUT HAS HELP TRYING TO FIND PLACE TO LIVE WITH DOG. H/R REG, NO MURMER NOTED. NO TELE. LUNGS CLEAR UPPER. COARSE AND WHEEZY IN BASES. ON R.A. RESP EASY, UNLABORED. BT X4 STATES LAST BM 4 DAYS. COLACE AND M.O.M. ADMIN. VOIDS PER BSC SBA. BED IN LOW POSITION, CALL LITE IN REACH, CALLS APPROP
--- NOTE | 2019-05-30 12:11 | NUR ---
[address] PETIT. D/C FENTALNYL & INCREASE PERCOCET TO 1-2 TABS.
--- NOTE | 2019-05-30 17:43 | NUR ---
PT PLEASANT TODAY. PAIN MEDS INCREASED TODAY TO PT SATISFACTION. NO OTHER CONCERNS AT THIS TIME. BED IN LOW POSITION, CALL LITE IN REACH, CALLS APPROP
--- NOTE | 2019-05-31 03:51 | NUR ---
SHIFT SUMMARY AOX4. LS CLEAR. SOB W/ACTIVITY. NO C/O NAUSEA. PAIN RATED 6-8/10 "EVERYWHERE". BACLOFEN GIVEN @ 2009 AND 2 PERCOCET GIVEN @ 2319. BRUISING TO EYES, NOSE, BACK, AND ARMS. TOES ARE SCABBED. L ANKLE ABRAISION HAS MEPILEX. SBA TO BSC. IV IN R WRIST IS SL. AC AND HS, BG 181 HS. PT/OT. VSS ON RA. UNSURE OF DC PLAN AT THIS TIME. PT HAS WEDGER FROM [employer].
--- NOTE | 2019-05-31 11:00 | NUR ---
PT PLEASANT THIS AM. A/O X3 . STATES PAIN IMPROVED. MED PER EMAR. H/R REG, NO MURMER NOTED. NO TELE. LUNGS COARSE BASES AND EXP WHEEZES. RESP EASY, UNLABORED. ON R.A. BT X4 LAST BM YEST. VOIDS SBA BSC. BED IN LOW POSITION, CALL LITE IN REACH, CALLS APPROP
--- NOTE | 2019-05-31 13:54 | NUR ---
INITIAL PAL CARE VISIT: Pt agreeable to a visit and discussion of advanced care planning. Pt is a DNR currently. She does not have a POLST or AD available in EMR. She is 63 years old and has experienced some homelessness lately. I am not clear if she was living in her car just prior to this admission or more remotely. Pt reports she's been living in her car and cannot remember what happened to her or how she arrived at the hospital. She does remember EMS intervention and believes her DHS worker was present. When discussing her wishes and who her surrogate decision makers would be she initially stated she only wanted comfort care. I discussed current care she was receiving now is more than comfort care and pt agrees she is ok with current care she is receiving. Pt states her sister, Jenna Marie and brother, Poncho Saxena would be her surrogate decision makers. Sister lives in [place] and Brother is out of area also. Pt states she has done an AD previously and that it may be in storage. She is agreeable to completing a POLST and this was done with her, signed by and faxed to medical records. Pt is currently alert and oriented despite lapses in memory surrounding the event of EMS finding her down and unconscious in her car. She has extensive facial bruising around her eyes. She complains of frontal and posterior HAENY, body aches, leg pain due to prev fx in the spring. She reports her pain/discomfort has been acceptably treated per current orders and eMAR. She reports working with PT/OT currently and that she needs to get back on her feet and able to walk short distances again. She has PMH of chronic deconditioning, diabetes, COPD, depression. She said she is working with her [employer]/D[employer] worker on finding "a place". Will follow and visit again as needed/indicated. I called pt's brother from pt's room as he was not aware that pt had been hospitalized and pt did not think she could call long distance from her room. Number dialed and I was able to reach him and connect them immediately. I left the room at that point so pt could speak with her brother and give him an update on her situation. I placed the original completed POLST and two copies in the bedside cabinet per pt's instructions and let the RN know where they were also.
--- NOTE | 2019-05-31 18:37 | NUR ---
PT PLEASANT TODAY, PAIN MANAGED WITH AVAIL MEDS. TOOK SHOWER. PT STATES FEELS BETTER. BED IN LOW POSITION, CALL LITEIN REACH, CALLS APPROP
--- NOTE | 2019-06-01 04:35 | NUR ---
SHIFT SUMMARY AOX4. LS HAVE END EX. WHEEZES. DENIES SOB. NO C/O NAUSEA. PAIN RATED 6-8/10 "EVERYWHERE". BACLOFEN GIVEN @ 2019. 2 PERCOCET GIVEN @ 2344. PT SLEPT MOST OF THE NIGHT. SBA TO BSC. BRUISING TO EYES, NOSE, BACK, AND LEGS. TOES ARE SCABBED BUT OPEN TO AIR. L ANKLE ABRASION HAS FOAM DRESSING. IV IN R WRIST IS SL. HS GLUCOSE 66, LANTUS HELD, PT REQUESTED PUDDING AND JELLO. PT STATED SHE ALREADY REMOVED HER LIDO PATCH AND REFUSED NYSTATIN CREAM B/C SHE PUT IT ON AFTER SHOWER. DC IS PENDING PLACEMENT. EITHER LTC OR [facility]ULT [facility].
--- NOTE | 2019-06-01 17:06 | NUR ---
PT AOX4 AND COOPERATIVE OF CARE. PT HAS BEEN VERY BUSY REQUESTING MEDICAITONS THROUGHOUT THE DAY. PT WENT OUT ONCE WITH FAMILY ESCORTING. PT WRAPPED HER OWN TOES WITH SUPERVISION SHE WANTED TO DO HER OWN CARE. TREATED FOR PAIN PER EMAR WELL NAUSEA. WILL CONTINUE TO MONITOR NO DISTRESS NOTED.
--- NOTE | 2019-06-01 18:45 | NUR ---
Spiritual Care inital note: Jeniffer told me long story of how she has been living in her car for the past few months. Multiple hospitalizations and SNF stays, also poor financial decisions have led to her homelessness. She was tearful when telling me that she had to surrender her dog yesterday as she recognizes she can no longer care for him properly. "He was all I had." Jeniffer responded well to licensed mental health counselor and prayer. She has a kate, but it is rather distant. Offered assurance of care, attention, and safety. I will remain available.
--- NOTE | 2019-06-02 03:54 | NUR ---
SHIFT SUMMARY AOX4. LS WHEEZY, SOB W/ACTIVITY. PT REPORTED A LITTLE NAUSEA DURING MEALTIME, NONE DURING ASSESSMENT. PAIN MANAGEMENT: BACLOFEN @ 1945 AND 0330, PERCOCET @ 0115, IBUPROFEN @ 0330. L ANKLE DRESSING. BRUISNG CONTINUES TO IMPROVE. SCABBED TOES OPEN TO AIR. IV IN R WRIST SL. HS BLOOD GLUCOSE 207. VSS ON RA. WAITING FOR PLACEMENT AT EITHER LTC OR [facility].
--- NOTE | 2019-06-02 17:15 | NUR ---
PT WAS DOING WELL TODAY. AOX4 AND COOPERATIVE OF ALL CARE. PT HAS BEEN INDEPENDENT IN ROOM AND USES WALKER WELL. TREATED FOR NAUSEA AND PAIN PER EMAR. PT AMBULATED ON HER OWN OUTSIDE TODAY WITH HER WALKER, EVEN THOUGH SHE WAS ADVISED NOT TO GO OUT ON HER OWN. PT HAD STATED SHE DID NOT CARE AND WAS GOING TO GO. PT DID WELL AND RETURNED TO ROOM. PT AND OT WORKED WITH HER TODAY. NO DISTRESS NOTED WILL CONITNUE TO MONITOR.
[2019-06-03 04:23] LABS: BASOPHILS ABSOLUTE AUTO 0.03 K/mm3 (0.00-0.23); BASOPHILS PERCENT AUTO 1 % (0-2); EOSINOPHILS ABSOLUTE AUTO 0.09 K/mm3 (0.00-0.68); EOSINOPHILS PERCENT AUTO 1 % (0-6); Hematocrit 33.5 % (33.0-51.0); Hemoglobin 11.3 g/dL (11.5-16.0); IMMATURE GRAN ABSOLUTE AUTO 0.04 K/mm3 (0.00-0.10); IMMATURE GRAN PERCENT AUTO 1 % (0-1); LYMPHOCYTES ABSOLUTE AUTO 3.25 K/mm3 (0.84-5.20); LYMPHOCYTES PERCENT AUTO 51 % (21-46); MONOCYTES ABSOLUTE AUTO 0.67 K/mm3 (0.16-1.47); MONOCYTES PERCENT AUTO 11 % (4-13); Mean Corpuscular HGB 33.7 pg (26.0-34.0); Mean Corpuscular HGB Conc 33.7 g/dL (31.5-36.5); Mean Corpuscular Volume 100 fL (80-100); Mean Platelet Volume 9.2 fL (9.1-12.4); NEUTROPHILS ABSOLUTE AUTO 2.31 K/mm3 (1.96-9.15); NEUTROPHILS PERCENT AUTO 36 % (41-73); Platelet Count 255 K/mm3 (150-400); RDW Coefficient Variation 12.8 % (11.7-14.2); RDW Standard Deviation 46.7 fL (35.1-46.3); Red Blood Cell Count 3.35 M/mm3 (3.80-5.20); White Blood Cell Count 6.39 K/mm3 (4.00-11.30)
[2019-06-03 04:41] LABS: Anion Gap 4 mmol/L (6-16); Blood Urea Nitrogen 13 mg/dL (8-24); Bun/Creatinine Ratio 18.3 (12.0-20.0); CO2, Blood 31 mmol/L (21-32); Calcium, Blood 8.4 mg/dL (8.5-10.1); Chloride, Blood 103 mmol/L (98-108); Creatinine, Blood 0.71 mg/dL (0.40-1.00); Glomerular Filtration Rate >60 (60-); Glucose, Blood 116 mg/dL (70-99); Potassium, Blood 4.6 mmol/L (3.5-5.5); Sodium, Blood 138 mmol/L (136-145)
--- NOTE | 2019-06-03 05:43 | NUR ---
SHIFT SUMMARY: NO ACUTE CHANGES TO REPORT. PT WAS CALM AND COOPERATIVE WITH CARE. RECEIVED PAIN MEDS PER EMAR. BED LOW, LOCKED, ALARMED, CALL SMITH WITHIN REACH
--- NOTE | 2019-06-03 18:08 | NUR ---
SHIFT SUMMARY DAISHA COMPLAINED OF PAIN IN HER BACK AND LEGS AND FEET THIS SHIFT. SHE RECEIVED PO PAIN MEDS AND BACLOFEN AND IBUPROFEN. ADA DIET, CBGS REQUIRING INSULIN. FELT HYPOGLYCEMIC ONCE, CBG CHECKED, 63. JUICE AND SANDWICH GIVEN. FELT NAUSEOUS, RECEIVED ZOFRAN. L TOE WOUNDS CLEANED AND REDRESSED WITH SANTYL AND BANDAID. MILK OF MAG GIVEN X1 FOR NO BM FOR A FEW DAYS PER PT. WENT OUTSIDE TO SMOKE X2 IN WHEELCHAIR. INDEP TO BSC IN ROOM. TOOK MEDS PRESCRIBED. CALL LIGHT IN REACH, [facility]
--- NOTE | 2019-06-04 06:21 | NUR ---
Rn summary: Patient is alert and oriented. Pt gets up to the BSC independantly. Pt had output of 1800 cc this shift. Pt slept well but was incontinent this am. Linen changed. Pt was medicated this am with percocet 2 tabs for rt leg pain 05/27. Pt has other lowry done well. Breath sounds are course throughout. Pt has not had a BM for several days. Given mirlax at HS, no results. Pt continues to rest this am. Call Light is in reach.
--- NOTE | 2019-06-04 17:29 | NUR ---
SHIFT SUMMARY: PT IS A/O X 4 WITH CHRONIC C/O PAIN AND GENERAL DISCOMFORT. PT C/O NAUSEA AND POOR APPETITE. PT IS UP AD BHUPINDER IN HER ROOM. AND WHEELS DOWNSTAIRS IN HER WHEELCHAIR. DRESSING TO HER LLE WAS CHANGED AND SANTYL APPLIED ORDERED. PT REMAINS CONT OF B/B. RT CONTINUES TO WORK WITH PT. PT IS ABLE TO MAKE HER NEEDS KNOWN AND CALLS FOR HELP WHEN NEEDED.
--- NOTE | 2019-06-05 05:54 | NUR ---
SHIFT SUMMARY PT INDEPENDENT TO BSC IN ROOM. C/O PAIN IN LEGS,SHOULDSERS, HIPS AND MEDICATED PER EMAR X2. SHE WAS ABLE TO SLEEP T/O NIGHT. CALL LIGHT IN REACH.
--- NOTE | 2019-06-05 17:05 | NUR ---
SHIFT SUMMARY: PT IS A/O X 4 AND CONTINUES TO C/O CHRONIC PAIN AND ONGOING NAUSEA IN THE MORNING WITH POOR APPETITE R/T HER NOT LIKING THE FOOD HERE. PT WENT DOWNSTAIRS AND ATTEMPTED TO BUY FOOD FROM THE [employer] AND WAS EDUCATED ON THE POLICY THAT SHE ORDER WITHIN HER ORDERED DIET AND DIABETIC OPTIONS AVAILABLE TO HER. DRESSING TO LLE WAS CHANGED AND WOUND IS UNCHANGED FROM YESTERDAY. PT CONTINUES TO USE THE BSC FOR TOILETING AND CALLS FOR HELP WHEN NEEDED.
--- NOTE | 2019-06-06 06:25 | NUR ---
SHIFT SUMMARY PT C/O PAIN X2 IN LEGS, HIP, BACK AND MEDICATED PER EMAR. INDEPENDENT IN ROOM TO BSC. SHE WAS ABLE TO SLEEP T/O NIGHT. CALL LIGHT IN REACH.
--- NOTE | 2019-06-06 17:34 | NUR ---
PT NOT IN ROOM.
--- NOTE | 2019-06-06 17:53 | NUR ---
SHIFT SUMMARY OX4. DOWN IN W/C TO SMOKE X2 TODAY. COOPERATIVE. EATING AND DRINKING WELL. SHOWER TODAY. PERCOCET AND IBUPROFEN FOR SHOULDER AND LOWER EXT PAIN. HOMELESS. POSSIBLE DC TOMORROW TO [facility]ULT [facility].
--- NOTE | 2019-06-07 06:15 | NUR ---
PAPER FEEDER SUMMARY PT A/O. CONVERSES APPROPRIATELY. PT WAS AGITATED EARILER DURING THE SHIFT BUT WAS PLEASANT THROUGHOUT THE REST OF THE SHIFT. PT FOLLOWED COMMANDS. PT WANTED TO HAVE SANTYL OILMENT TO AFFECTED AREAS EARILER THAN SCHEDULED TIME. NOTIFIED OF THIS AND APPROVED TO APPLY IT AT AN EARILER TIME. PRN MEDS RECIVED SCHEDULED. VSS AND WILL CONINTUE TO MONITOR.
--- NOTE | 2019-06-07 06:46 | NUR ---
CRICKET PT GETS UP WITH WALKER BY SELF AND USES BED SIDE COMMODE APPROPRIATELY.
--- NOTE | 2019-06-07 17:58 | NUR ---
PATIENT A/OX4, UP INDEPENDENTLY TO W/C BSC. PATIENT HAS CHRONIC PAIN IN LEGS AND BACK, TAKES PERCOCET, IBUPROFEN AND BACLOFEN TO TREAT. 20G IV TO R FA WNL AND SL. BRUSING TO FACE IMPROVING. PATIENT C/O OF INTERMITTENT NAUSEA, ZOFRAN GIVEN X1 THIS SHIFT TO TREAT. VSS, ON RA. AWAITING PLACEMENT IN ASSISTED LIVING, WOLFGANG MCADAMS HERE TODAY TO ASSESS PATIENT. CALM AND COOPERATIVE WITH CARE, CALLS APPROPRIATELY FOR ASSISTANCE.
--- NOTE | 2019-06-08 04:29 | NUR ---
SHIFT SUMMARY- NO ACUTE CHANGES OVERNIGHT. PT. ASLEEP T/O THE NIGHT. C/O CONSTIPATION, PRUNE JUICE AND SCHEDULED MEDS GIVEN, BUT NO BM LAST NIGHT. PAIN GIVEN 1X FOR C/O PAIN THIS AM. PT. FELL BACK ASLEEP. NO APPARENT DISTRESS NOTED. CALL LIGHT WITHIN REACH AND SIDE RAILS UP X2. WILL CONT TO MONITOR.
--- NOTE | 2019-06-08 18:15 | NUR ---
PATIENT A/OX4, UP IN ROOM WITH FWW INDEPENDENTLY. VSS, ON RA. CHRONIC LEG/BACK PAIN, SCHEDULED AND PRN MEDICATIONS USED TO TREAT. SMALL SORE TO TOES ON L FOOT AND L HARRIS, SANTYL OINTMENT APPLIED AND REDRESSED WITH BANDAID. SUPPOSITORY GIVEN AND ENEMA ORDERED TO TREAT CONSITPATION. PATIENT IS AWAITING PLACEMENT IN ASSISTED LIVING FACILITY.
--- NOTE | 2019-06-09 04:56 | NUR ---
SHIFT SUMMARY- PT. SLEPT WELL T/O THE NIGHT, NO APPARENT DISTRESS NOTED. PAIN MED GIVEN FOR CHRONIC BACK, KNEE, SHOULDER, AND LEG PAIN. PT. IS A&O INDEP IN ROOM WITH WC. DRESSING ON WOUNDS TO THE LT FOOT/LEG C/D/I. DENIED ANY OTHER NEEDS T/O THE SHIFT. PT. AWAITING PLACEMENT TO ASSISTED LIVING.
--- NOTE | 2019-06-09 14:37 | NUR ---
DISCHARGE: PATIENT LEFT ROOM TO SMOKE A CIGARETTE. PATIENT STABLE AT TIME OF LEAVING ROOM. PATIENT HAS NOT RETURNED AFTER ALMOST 2 HOURS OUT OF ROOM. DR. MCKEON AWARE. PER HOSPITAL POLICY, PATIENT IS BEING DISCHARGED AMA. DR. MCKEON, COURIER DRIVER (COLLEEN An) AND CRYPTOLOGIC SUPERVISOR AWARE. PATIENT HAD A 20 GAUGE IV IN HER RIGHT FOREARM THAT THE RN WAS UNABLE TO REMOVE. PATIENT ALERT AND ORIENTED TODAY. PATIENT REPORTED CHRONIC PAIN AND NO NEW ACUTE PAIN. PATIENT HAD A GOOD APPETITE. PATIENT UP TO BSC INDEPENDENTLY. PATIENT CALLED APPROPRIATELY. PATIENT REPORTED NAUSEA IN THE AM AND THAT THIS WAS NORMAL FOR HER. NAUSEA RESOLVED WITH PRN ZOFRAN PER EMAR.
--- NOTE | 2019-06-09 18:23 | NUR ---
LEAVING THE HOSPITAL: COORDINATING WITH CARE MANAGEMENT, Juvencio LANGE AND LUMBER STRAIGHTENED, COLLEEN An PATIENT WAS DISCHARGED TO A MOTEL AND BASE MEDICATIONS (NOT PERCOCET) PRESCRIPTIONS WERE FAXED TO [facility]. A RIDE WAS SET UP WITH [facility]. PATIENT LEFT THE HOSPITAL AT 1830. PATIENT STABLE AT TIME OF LEAVING.
== END 2019-06-09 14:34 | disposition left against medical advice (07) | DRG 72 ==
LOC: ER 17:15 → PCU 17:16 → MEDS 05-28 14:58
PROVIDERS: Emergency Medicine; Family Medicine; ADMIT Internal Medicine
DX: G93.40 Encephalopathy, unspecified (principal); E03.9 Hypothyroidism, unspecified; G89.29 Other chronic pain; E11.9 Type 2 diabetes mellitus without complications; S00.83XA Contusion of other part of head, initial encounter; I10 Essential (primary) hypertension; M25.511 Pain in right shoulder; Z79.4 Long term (current) use of insulin; K59.00 Constipation, unspecified; J44.9 Chronic obstructive pulmonary disease, unspecified; F32.9 Major depressive disorder, single episode, unspecified; F41.9 Anxiety disorder, unspecified; F17.210 Nicotine dependence, cigarettes, uncomplicated; E86.0 Dehydration; E87.6 Hypokalemia; Z66 Do not resuscitate; Z59.0 Homelessness; W19.XXXA Unspecified fall, initial encounter
CPT/HCPCS: 36415; 36600; 70450; 70486; 71045; 73030; 80048; 80053; 81001; 82140; 82803; 82947; 83605; 83735; 84439; 84443; 84484; 85025; 85027; 87040; 87086; 93005; 93010; 94640; 94667; 94760; 96361; 96365; 96366; 96372-59; 96375; 96376; 97110; 97116; 97162; 97166; 97530; 97535; 99285-25; A9270; C9113; G0378; G0480; J1650; J2060; J2405; J3010; J3480; J7030

== ENCOUNTER 2019-07-12 11:37 | Emergency (ER) | payer MEDICARE, OTHER ==
[~2019-07-12] VITALS: Ht 152.4 cm; Wt 63.5 kg
[~2019-07-12 11:37] MED LIST changes: +BACL20 PO; +BENADRYL25 MG PO; +Citalopram HBr20 MG PO; +Milk Of Ma400 MG/5 M PO; +Mobic15 MG PO; +ONDA4ODT MM; +OXYB5 PO; +Prinivil5 MG PO; +SANTYL30 GM TOP; +TUMS500 MG PO; +VARE1
== END 2019-07-12 16:08 | disposition home or self-care (01) ==
LOC: ER 11:37
DX: S40.011A Contusion of right shoulder, initial encounter (principal); S70.01XA Contusion of right hip, initial encounter; M87.9 Osteonecrosis, unspecified; E11.9 Type 2 diabetes mellitus without complications; I10 Essential (primary) hypertension; F32.9 Major depressive disorder, single episode, unspecified; F41.9 Anxiety disorder, unspecified; E03.9 Hypothyroidism, unspecified; K21.9 Gastro-esophageal reflux disease without esophagitis; J44.9 Chronic obstructive pulmonary disease, unspecified; F17.210 Nicotine dependence, cigarettes, uncomplicated; Z88.2 Allergy status to sulfonamides; Z79.899 Other long term (current) drug therapy; Z79.84 Long term (current) use of oral hypoglycemic drugs; W19.XXXA Unspecified fall, initial encounter
CPT/HCPCS: 36415; 73030; 73502; 96374; 99283-25; A9270-GY; J1885

== ENCOUNTER 2019-12-06 04:48 | Emergency (ER) | payer MEDICARE, OTHER ==
[~2019-12-06] VITALS: Ht 152.4 cm; Wt 68.0 kg
[2019-12-06] MEDS ORDERED: RIFA300 PO (05:18)
[2019-12-06] MEDS ORDERED: Atarax10 MG PO (06:13)
== END 2019-12-06 07:15 | disposition home or self-care (01) ==
LOC: ER 04:48
DX: R20.2 Paresthesia of skin (principal); E11.9 Type 2 diabetes mellitus without complications; I10 Essential (primary) hypertension; F32.9 Major depressive disorder, single episode, unspecified; M41.9 Scoliosis, unspecified; G89.29 Other chronic pain; F17.200 Nicotine dependence, unspecified, uncomplicated; Z88.2 Allergy status to sulfonamides; Z79.84 Long term (current) use of oral hypoglycemic drugs; Z79.899 Other long term (current) drug therapy
CPT/HCPCS: 99284; A9270-GY

== ENCOUNTER 2020-01-02 12:06 | Emergency (ER) | payer MEDICARE, OTHER ==
[~2020-01-02] VITALS: Ht 152.4 cm; Wt 72.6 kg
[~2020-01-02 12:06] MED LIST changes: +Atarax10 MG PO; +RIFA300 PO
[2020-01-02] MEDS ORDERED: BACL10 PO (12:25)
[2020-01-02] MEDS ORDERED: OXYC10TA19 PO (12:25)
[2020-01-02 12:54] LABS: Source, Urine Clean Catch
[2020-01-02 12:58] LABS: Bilirubin, Urine Neg (Neg); Blood, Urine Neg (Neg); Glucose Qualitative, Urine Neg (Neg); Ketones, Urine Neg (Neg); Leukocyte Esterase, Urine Neg (Neg); Nitrite, Urine Neg (Neg); Protein, Urine 1+ (Neg); Urobilinogen, Urine NORM (Normal)
[2020-01-02 12:59] LABS: Appearance, Urine Clear (Clear); Color, Urine Yellow (P-Yellow)
== END 2020-01-02 14:23 | disposition home or self-care (01) ==
LOC: ER 12:06
PROVIDERS: Emergency Medicine
DX: G89.29 Other chronic pain (principal); M54.5 Low back pain; M25.511 Pain in right shoulder; B85.2 Pediculosis, unspecified; R11.2 Nausea with vomiting, unspecified; E11.9 Type 2 diabetes mellitus without complications; I10 Essential (primary) hypertension; F32.9 Major depressive disorder, single episode, unspecified; F17.200 Nicotine dependence, unspecified, uncomplicated; Z88.2 Allergy status to sulfonamides; Z79.899 Other long term (current) drug therapy; Z79.51 Long term (current) use of inhaled steroids
CPT/HCPCS: 96372; 99283-25; J1885

== ENCOUNTER 2020-01-04 15:12 | Emergency (ER) | payer MEDICARE, OTHER ==
[~2020-01-04] VITALS: Ht 152.4 cm; Wt 68.0 kg
[~2020-01-04 15:12] MED LIST changes: +BACL10 PO; +OXYC10TA19 PO
[2020-01-04 16:31] LABS: BASOPHILS ABSOLUTE AUTO 0.07 K/mm3 (0.00-0.23); BASOPHILS PERCENT AUTO 1 % (0-2); EOSINOPHILS ABSOLUTE AUTO 0.11 K/mm3 (0.00-0.68); EOSINOPHILS PERCENT AUTO 1 % (0-6); Hemoglobin 14.1 g/dL (11.5-16.0); IMMATURE GRAN ABSOLUTE AUTO 0.04 K/mm3 (0.00-0.10); IMMATURE GRAN PERCENT AUTO 0 % (0-1); LYMPHOCYTES ABSOLUTE AUTO 1.41 K/mm3 (0.84-5.20); LYMPHOCYTES PERCENT AUTO 15 % (21-46); MONOCYTES ABSOLUTE AUTO 0.77 K/mm3 (0.16-1.47); MONOCYTES PERCENT AUTO 8 % (4-13); Mean Corpuscular HGB 32.5 pg (26.0-34.0); Mean Corpuscular HGB Conc 33.6 g/dL (31.5-36.5); Mean Corpuscular Volume 97 fL (80-100); Mean Platelet Volume 9.3 fL (9.1-12.4); NEUTROPHILS ABSOLUTE AUTO 7.33 K/mm3 (1.96-9.15); NEUTROPHILS PERCENT AUTO 75 % (41-73); Platelet Count 299 K/mm3 (150-400); RDW Standard Deviation 46.3 fL (35.1-46.3); Red Blood Cell Count 4.34 M/mm3 (3.80-5.20); White Blood Cell Count 9.73 K/mm3 (4.00-11.30)
[2020-01-04 16:58] LABS: Acetaminophen, Random <2.0 ug/mL (10.0-30.0); Alanine Aminotransfer (ALT/SGP 35 U/L (12-78); Albumin, Blood 4.1 g/dL (3.4-5.0); Alk Phos 107 U/L (50-136); Anion Gap 7 mmol/L (6-16); Aspartate Aminotrans (AST/SGOT 31 U/L (12-37); Bilirubin, Total 0.6 mg/dL (0.1-1.0); Blood Urea Nitrogen 13 mg/dL (8-24); Bun/Creatinine Ratio 22.2 (12.0-20.0); CO2, Blood 26 mmol/L (21-32); Calcium, Blood 9.5 mg/dL (8.5-10.1); Chloride, Blood 99 mmol/L (98-108); Creatinine, Blood 0.59 mg/dL (0.40-1.00); Ethanol (Alcohol), Blood, Med <3 mg/dL; Globulin, Blood 4.3 g/dL (2.2-4.0); Glomerular Filtration Rate >60 (60-); Glucose, Blood 204 mg/dL (70-99); Potassium, Blood 4.1 mmol/L (3.5-5.5); Sodium, Blood 132 mmol/L (136-145); Total Protein, Blood 8.4 g/dL (6.4-8.2)
== END 2020-01-04 18:18 | disposition home or self-care (01) ==
LOC: ER 15:12
PROVIDERS: Emergency Medicine
DX: T40.2X1A Poisoning by other opioids, accidental (unintentional), initial encounter (principal); R40.4 Transient alteration of awareness; E11.9 Type 2 diabetes mellitus without complications; I10 Essential (primary) hypertension; F32.9 Major depressive disorder, single episode, unspecified; F17.200 Nicotine dependence, unspecified, uncomplicated; G89.29 Other chronic pain; Z88.2 Allergy status to sulfonamides; Z79.899 Other long term (current) drug therapy; Z79.84 Long term (current) use of oral hypoglycemic drugs
CPT/HCPCS: 36415; 80053; 85025; 99284; G0480

== ENCOUNTER 2020-06-03 22:21 | Emergency (ER) | payer MEDICARE, OTHER ==
[~2020-06-03] VITALS: Ht 152.4 cm; Wt 77.1 kg
[~2020-06-03 22:21] MED LIST changes: +AMLODIPINE BESY10 MG PO; +Buspirone HCl10 MG PO; +CIPR500 PO; +Chantix1 MG PO; +Diclofenac Sodi50 MG PO; +GLUCOPHAGE1000 M1 PO; +LISI20 PO; +METR500 PO; +NEURONTIN300 MG PO; +SYNTHROID50 MC1 PO; +TRAZ100 PO
[2020-06-03 23:13] LABS: Source, Urine Voided
[2020-06-03 23:18] LABS: Appearance, Urine Clear (Clear); Bilirubin, Urine Neg (Neg); Blood, Urine Neg (Neg); Color, Urine Yellow (P-Yellow); Glucose Qualitative, Urine Neg (Neg); Ketones, Urine 2+ (Neg); Leukocyte Esterase, Urine 1+ (Neg); Nitrite, Urine Neg (Neg); Protein, Urine Neg (Neg); Urobilinogen, Urine NORM (Normal)
[2020-06-03 23:19] LABS: BASOPHILS ABSOLUTE AUTO 0.05 K/mm3 (0.00-0.23); BASOPHILS PERCENT AUTO 1 % (0-2); EOSINOPHILS ABSOLUTE AUTO 0.11 K/mm3 (0.00-0.68); EOSINOPHILS PERCENT AUTO 1 % (0-6); Hematocrit 23.3 % (33.0-51.0); Hemoglobin 7.9 g/dL (11.5-16.0); IMMATURE GRAN ABSOLUTE AUTO 0.23 K/mm3 (0.00-0.10); IMMATURE GRAN PERCENT AUTO 2 % (0-1); LYMPHOCYTES PERCENT AUTO 15 % (21-46); MONOCYTES ABSOLUTE AUTO 1.25 K/mm3 (0.16-1.47); MONOCYTES PERCENT AUTO 13 % (4-13); Mean Corpuscular HGB 33.9 pg (26.0-34.0); Mean Corpuscular HGB Conc 33.9 g/dL (31.5-36.5); Mean Corpuscular Volume 100 fL (80-100); Mean Platelet Volume 8.8 fL (9.1-12.4); NEUTROPHILS ABSOLUTE AUTO 6.81 K/mm3 (1.96-9.15); NEUTROPHILS PERCENT AUTO 68 % (41-73); Platelet Count 361 K/mm3 (150-400); RDW Coefficient Variation 12.8 % (11.7-14.2); RDW Standard Deviation 44.9 fL (35.1-46.3); Red Blood Cell Count 2.33 M/mm3 (3.80-5.20); White Blood Cell Count 9.95 K/mm3 (4.00-11.30)
[2020-06-03 23:25] LABS: Bacteria Few /hpf; Red Blood Cells, Urine 0-2 /hpf (0-2); Squamous Epithelial Cells Few /hpf (Few); White Blood Cells, Urine 0-2 /hpf (0-5)
[2020-06-03] MEDS ORDERED: ASPI325 PO (23:32)
[2020-06-03] MEDS ORDERED: BACL20 PO (23:33)
[2020-06-03] MEDS ORDERED: CITA20 PO (23:35)
[2020-06-03] MEDS ORDERED: FERSU300 PO (23:36)
[2020-06-03] MEDS ORDERED: METO5A PO (23:39)
[2020-06-03] MEDS ORDERED: OXYC10TA19 PO ×2 (23:39→23:40)
[2020-06-03] MEDS ORDERED: SENN187 PO (23:40)
[2020-06-03 23:43] LABS: Alanine Aminotransfer (ALT/SGP 33 U/L (12-78); Albumin, Blood 3.2 g/dL (3.4-5.0); Albumin/Globulin Ratio 0.8 (0.8-1.8); Alk Phos 85 U/L (50-136); Anion Gap 7 mmol/L (6-16); Aspartate Aminotrans (AST/SGOT 53 U/L (12-37); Blood Urea Nitrogen 21 mg/dL (8-24); Bun/Creatinine Ratio 23.5 (12.0-20.0); CO2, Blood 26 mmol/L (21-32); Calcium, Blood 8.6 mg/dL (8.5-10.1); Chloride, Blood 92 mmol/L (98-108); Globulin, Blood 4.1 g/dL (2.2-4.0); Glomerular Filtration Rate >60 (60-); Glucose, Blood 200 mg/dL (70-99); Potassium, Blood 4.9 mmol/L (3.5-5.5); Sodium, Blood 125 mmol/L (136-145); Total Protein, Blood 7.3 g/dL (6.4-8.2)
[2020-06-04] MEDS ORDERED: METO10 PO (01:35)
[2020-06-04] MEDS ORDERED: PROM25 PO (01:35)
== END 2020-06-04 03:08 | disposition home or self-care (01) ==
LOC: ER 22:21
PROVIDERS: Emergency Medicine
DX: R11.2 Nausea with vomiting, unspecified (principal); E86.0 Dehydration; F32.9 Major depressive disorder, single episode, unspecified; I10 Essential (primary) hypertension; E11.9 Type 2 diabetes mellitus without complications; Z79.82 Long term (current) use of aspirin; Z88.2 Allergy status to sulfonamides; Z79.899 Other long term (current) drug therapy
CPT/HCPCS: 36415; 80053; 81001; 83690; 85025; 87086; 96361; 96374; 99284-25; J2550; J7030

== ENCOUNTER 2020-10-18 16:40 | Emergency (ER) | payer MEDICARE, OTHER ==
[~2020-10-18] VITALS: Ht 152.4 cm; Wt 77.1 kg
[~2020-10-18 16:40] MED LIST changes: +ASPI325 PO; +FERSU300 PO; +METO10 PO; +METO5A PO; +PROM25 PO; +SENN187 PO
[2020-10-18] MEDS ORDERED: OXYB5 PO (16:59)
[2020-10-18] MEDS ORDERED: MIRALAX17 GM PO (17:05)
[2020-10-18] MEDS ORDERED: TIOT18 INH (17:05)
[2020-10-18] MEDS ORDERED: TRAZ100 PO (17:06)
[2020-10-18] MEDS ORDERED: FAMO20 PO (17:07)
[2020-10-18] MEDS ORDERED: ONDA4ODT MM (17:08)
[2020-10-18] MEDS ORDERED: Ventolin/Prove6.7 GM INH (17:09)
[2020-10-18] MEDS ORDERED: PROC5 PO (17:09)
[2020-10-18 17:30] LABS: BASOPHILS ABSOLUTE AUTO 0.08 K/mm3 (0.00-0.23); BASOPHILS PERCENT AUTO 1 % (0-2); EOSINOPHILS ABSOLUTE AUTO 0.06 K/mm3 (0.00-0.68); EOSINOPHILS PERCENT AUTO 1 % (0-6); Hematocrit 37.3 % (33.0-51.0); Hemoglobin 12.7 g/dL (11.5-16.0); IMMATURE GRAN ABSOLUTE AUTO 0.08 K/mm3 (0.00-0.10); IMMATURE GRAN PERCENT AUTO 1 % (0-1); LYMPHOCYTES ABSOLUTE AUTO 1.13 K/mm3 (0.84-5.20); LYMPHOCYTES PERCENT AUTO 10 % (21-46); MONOCYTES ABSOLUTE AUTO 0.78 K/mm3 (0.16-1.47); MONOCYTES PERCENT AUTO 7 % (4-13); Mean Corpuscular HGB 32.3 pg (26.0-34.0); Mean Corpuscular Volume 95 fL (80-100); NEUTROPHILS ABSOLUTE AUTO 9.68 K/mm3 (1.96-9.15); NEUTROPHILS PERCENT AUTO 82 % (41-73); Platelet Count 362 K/mm3 (150-400); RDW Coefficient Variation 14.2 % (11.7-14.2); RDW Standard Deviation 49.7 fL (35.1-46.3); Red Blood Cell Count 3.93 M/mm3 (3.80-5.20); White Blood Cell Count 11.81 K/mm3 (4.00-11.30)
[2020-10-18 17:54] LABS: Alanine Aminotransfer (ALT/SGP 22 U/L (12-78); Albumin, Blood 3.4 g/dL (3.4-5.0); Albumin/Globulin Ratio 0.8 (0.8-1.8); Alk Phos 92 U/L (50-136); Anion Gap 6 mmol/L (6-16); Aspartate Aminotrans (AST/SGOT 17 U/L (12-37); Bilirubin, Total 0.4 mg/dL (0.1-1.0); Blood Urea Nitrogen 16 mg/dL (8-24); Bun/Creatinine Ratio 25.4 (12.0-20.0); CO2, Blood 26 mmol/L (21-32); Calcium, Blood 8.8 mg/dL (8.5-10.1); Chloride, Blood 96 mmol/L (98-108); Creatinine, Blood 0.63 mg/dL (0.40-1.00); Globulin, Blood 4.1 g/dL (2.2-4.0); Glomerular Filtration Rate >60 (60-); Glucose, Blood 174 mg/dL (70-99); Sodium, Blood 128 mmol/L (136-145); Total Protein, Blood 7.5 g/dL (6.4-8.2)
== END 2020-10-18 19:10 | disposition home or self-care (01) ==
LOC: ER 16:40
PROVIDERS: Physician Assistant
DX: R11.2 Nausea with vomiting, unspecified (principal); R53.83 Other fatigue; R51.9 Headache, unspecified; R42 Dizziness and giddiness; I10 Essential (primary) hypertension; E11.9 Type 2 diabetes mellitus without complications; Z88.2 Allergy status to sulfonamides; Z79.899 Other long term (current) drug therapy; Z79.84 Long term (current) use of oral hypoglycemic drugs; Z79.82 Long term (current) use of aspirin
CPT/HCPCS: 36415; 71045; 80053; 85025; 99284-25; J7030

== ENCOUNTER → 2020-10-19 | Outpatient (CLI) | payer MEDICARE, OTHER ==
[~2020-10-19] MED LIST changes: +FAMO20 PO; +MIRALAX17 GM PO; +PROC5 PO; +Ventolin/Prove6.7 GM INH
== END | disposition home or self-care (01) ==
LOC: LAB 15:30 → LAB SHORT 15:30
DX: N39.0 Urinary tract infection, site not specified (principal)
CPT/HCPCS: 87086

== ENCOUNTER 2020-11-08 07:49 | Day surgery (SDC) | payer MEDICARE, OTHER ==
[~2020-11-08] VITALS: Wt 76.9 kg
--- NOTE | 2020-11-08 08:33 | NUR ---
ADMISSION TO UNIT STARTED. ALERT ORIENTED. History, Chart, Medications and Allergies reviewed before start of procedure. Patient States Post-Procedure ride home has been arranged.
--- NOTE | 2020-11-08 09:08 | NUR ---
11/08/20 0908 Leti Talavera History, Chart, Medications and Allergies reviewed before start of procedure. Patient confirms NPO status and agrees with scheduled surgery. PATIENT DETERMINED TO BE ASA APPROPRIATE FOR PROPOFOL SEDATION PRIOR TO START OF PROCEDURE BY . 3-LEAD EKG REVIEWED WITH PHYSICIAN PRIOR TO START OF PROCEDURE. MONITOR INTACT WITH CONTINUOUS PULSE OXIMETRY AND INTERMITTENT BP. SUPPLEMENTAL O2 TO BE TITRATED THROUGHOUT PROCEDURE TO MAINTAIN O2 SATURATION ABOVE 90%.
--- NOTE | 2020-11-08 10:23 | NUR ---
Patient ABLE TO TRANSFER SELF TO BS. PT BECAME WHEEZY WITH O2SATS AT 95% WHILE ON COMMODE. PT USED OWN INHALER AND WHEEZES RESOLVED. PT WANTS TO HEAD HOME NOW SO SHE CAN SMOKE. RECEIVED REPORT FROM JAYCE ORR RN. DR ROSS SPOKE TO PATIENT. WILL KEEP FOLLOW UP APPOINTMENT AND HAVE ANOTHER COLONOSCOPY IN THREE YEARS.
--- NOTE | 2020-11-08 10:40 | NUR ---
Discharge instructions reviewed with patient. Patient verbalizes understanding. Copy given to patient to take home. Patient States Post-Procedure ride home has been arranged. Discharged via wheelchair to private car for ride home. PT ABLE TO TRANSFER SELF TO [facility] [place]/C WITHOUT DIFFICULTY. PT SENT HOME WITH ALL BELONINGS.
== END 2020-11-08 22:35 | disposition home or self-care (01) ==
LOC: ORSCMMR 07:49 → ORD 09:00 → ORSCMMR 09:00
PROVIDERS: Internal Medicine Gastroenterology
PROC: 0DBM8ZX Excision of Descending Colon, Via Natural or Artificial Opening Endoscopic, Diagnostic (ICD-10-PCS; principal; 2020-11-08 09:00)
PROC: 0DBE8ZX Excision of Large Intestine, Via Natural or Artificial Opening Endoscopic, Diagnostic (ICD-10-PCS; principal; 2020-11-08 09:00)
PROC: 0DB58ZX Excision of Esophagus, Via Natural or Artificial Opening Endoscopic, Diagnostic (ICD-10-PCS; principal; 2020-11-08 09:00)
PROC: 0DB78ZX Excision of Stomach, Pylorus, Via Natural or Artificial Opening Endoscopic, Diagnostic (ICD-10-PCS; principal; 2020-11-08 09:00)
PROC: 0DB98ZX Excision of Duodenum, Via Natural or Artificial Opening Endoscopic, Diagnostic (ICD-10-PCS; principal; 2020-11-08 09:00)
PROC: 0DBN8ZX Excision of Sigmoid Colon, Via Natural or Artificial Opening Endoscopic, Diagnostic (ICD-10-PCS; principal; 2020-11-08 09:00)
PROC: 0DBK8ZX Excision of Ascending Colon, Via Natural or Artificial Opening Endoscopic, Diagnostic (ICD-10-PCS; principal; 2020-11-08 09:00)
PROC: 0DBL8ZX Excision of Transverse Colon, Via Natural or Artificial Opening Endoscopic, Diagnostic (ICD-10-PCS; principal; 2020-11-08 09:00)
DX: K52.9 Noninfective gastroenteritis and colitis, unspecified (principal); R11.2 Nausea with vomiting, unspecified; K29.80 Duodenitis without bleeding; K22.70 Barrett's esophagus without dysplasia; K63.89 Other specified diseases of intestine; D12.3 Benign neoplasm of transverse colon; K63.5 Polyp of colon; E11.9 Type 2 diabetes mellitus without complications; I10 Essential (primary) hypertension; Z79.899 Other long term (current) drug therapy; Z79.84 Long term (current) use of oral hypoglycemic drugs; F17.210 Nicotine dependence, cigarettes, uncomplicated
CPT/HCPCS: 82947; 88305; 88312; 88342; A9270; J2704; J7120

== ENCOUNTER 2021-06-30 17:20 | Emergency (ER) | payer MEDICARE, OTHER ==
[~2021-06-30] VITALS: Ht 162.6 cm; Wt 72.6 kg
[2021-06-30 17:51] LABS: BASOPHILS ABSOLUTE AUTO 0.08 K/mm3 (0.00-0.23); BASOPHILS PERCENT AUTO 1 % (0-2); EOSINOPHILS ABSOLUTE AUTO 0.13 K/mm3 (0.00-0.68); EOSINOPHILS PERCENT AUTO 2 % (0-6); Hematocrit 41.3 % (33.0-51.0); Hemoglobin 13.9 g/dL (11.5-16.0); IMMATURE GRAN ABSOLUTE AUTO 0.02 K/mm3 (0.00-0.10); IMMATURE GRAN PERCENT AUTO 0 % (0-1); LYMPHOCYTES ABSOLUTE AUTO 2.54 K/mm3 (0.84-5.20); LYMPHOCYTES PERCENT AUTO 32 % (21-46); MONOCYTES ABSOLUTE AUTO 0.71 K/mm3 (0.16-1.47); MONOCYTES PERCENT AUTO 9 % (4-13); Mean Corpuscular HGB 34.2 pg (26.0-34.0); Mean Corpuscular HGB Conc 33.7 g/dL (31.5-36.5); Mean Corpuscular Volume 102 fL (80-100); Mean Platelet Volume 9.5 fL (9.1-12.4); NEUTROPHILS ABSOLUTE AUTO 4.47 K/mm3 (1.96-9.15); NEUTROPHILS PERCENT AUTO 56 % (41-73); Platelet Count 336 K/mm3 (150-400); RDW Coefficient Variation 12.6 % (11.7-14.2); RDW Standard Deviation 47.4 fL (35.1-46.3); Red Blood Cell Count 4.06 M/mm3 (3.80-5.20); White Blood Cell Count 7.95 K/mm3 (4.00-11.30)
[2021-06-30 18:11] LABS: Alanine Aminotransfer (ALT/SGP 21 U/L (12-78); Albumin, Blood 3.3 g/dL (3.4-5.0); Albumin/Globulin Ratio 0.8 (0.8-1.8); Alk Phos 84 U/L (50-136); Anion Gap 6 mmol/L (6-16); Aspartate Aminotrans (AST/SGOT 21 U/L (12-37); Bilirubin, Total 0.4 mg/dL (0.1-1.0); Blood Urea Nitrogen 15 mg/dL (8-24); Bun/Creatinine Ratio 19.8 (12.0-20.0); CO2, Blood 25 mmol/L (21-32); Calcium, Blood 8.9 mg/dL (8.5-10.1); Chloride, Blood 103 mmol/L (98-108); Creatinine, Blood 0.76 mg/dL (0.40-1.00); Ethanol (Alcohol), Blood, Med <3 mg/dL; Globulin, Blood 4.3 g/dL (2.2-4.0); Glomerular Filtration Rate >60 (60-); Glucose, Blood 121 mg/dL (70-99); Magnesium, Blood 1.6 mg/dL (1.6-2.4); Potassium, Blood 3.6 mmol/L (3.5-5.5); Sodium, Blood 134 mmol/L (136-145); Total Protein, Blood 7.6 g/dL (6.4-8.2)
[2021-06-30 18:53] LABS: SARS-Cov-2 (COVID-19) PCR, MMC NEGATIVE (NEGATIVE)
[2021-06-30 19:16] LABS: U Cannabinoids Screen DETECTED; U Oxycodone Screen DETECTED
[2021-06-30 19:17] LABS: U Amphetamine Screen Not Detected; U Barbituate Screen Not Detected; U Benzodiazapine Screen Not Detected; U Buprenorphine Screen Not Detected; U Cocaine Screen Not Detected; U Methadone Screen Not Detected; U Methamphetamine Screen Not Detected; U Opiates Screen Not Detected; U Phencyclidine Screen Not Detected; U Propoxyphene Screen Not Detected
== END 2021-06-30 22:15 | disposition home or self-care (01) ==
LOC: ER 17:20
PROVIDERS: Emergency Medicine
DX: G93.40 Encephalopathy, unspecified (principal); R40.0 Somnolence; M54.50 Low back pain, unspecified; G89.29 Other chronic pain; I10 Essential (primary) hypertension; E11.9 Type 2 diabetes mellitus without complications; F17.210 Nicotine dependence, cigarettes, uncomplicated; Z88.2 Allergy status to sulfonamides; Z79.84 Long term (current) use of oral hypoglycemic drugs; Z79.899 Other long term (current) drug therapy
CPT/HCPCS: 36415; 51701; 71045; 80053; 82947; 83735; 85025; 93005; 93010; 99285-25; G0480; U0004

== ENCOUNTER → 2021-10-29 | Outpatient (CLI) | payer MEDICARE, OTHER ==
[2021-10-29 19:49] LABS: Alanine Aminotransfer (ALT/SGP 22 U/L (12-78); Albumin, Blood 3.3 g/dL (3.4-5.0); Albumin/Globulin Ratio 0.9 (0.8-1.8); Alk Phos 95 U/L (50-136); Anion Gap 7 mmol/L (6-16); Aspartate Aminotrans (AST/SGOT 15 U/L (12-37); Bilirubin, Total 0.4 mg/dL (0.1-1.0); Blood Urea Nitrogen 11 mg/dL (8-24); Bun/Creatinine Ratio 18.4 (12.0-20.0); CO2, Blood 25 mmol/L (21-32); Calcium, Blood 8.7 mg/dL (8.5-10.1); Chloride, Blood 97 mmol/L (98-108); Cholesterol 110 mg/dL (50-200); Free Thyroxine 1.23 ng/dL (0.70-1.60); Globulin, Blood 3.8 g/dL (2.2-4.0); Glomerular Filtration Rate >60 (60-); Glucose, Blood 144 mg/dL (70-99); HDL Cholesterol 56 mg/dL (>39); LDL/HDL RATIO 0.7; Low Density Lipoprotein Chol 39 mg/dL (0-110); Potassium, Blood 4.6 mmol/L (3.5-5.5); Sodium, Blood 129 mmol/L (136-145); Thyroid Stimulating Hormone 0.801 uIU/mL (0.360-4.800); Total Protein, Blood 7.1 g/dL (6.4-8.2); Triglycerides 76 mg/dL (30-160); Very Low Density Lipoprot Chol 15 mg/dL (6-32)
== END ==
LOC: LAB SHORT 17:57
PROVIDERS: Nurse Practitioner
DX: E11.21 Type 2 diabetes mellitus with diabetic nephropathy (principal); E03.9 Hypothyroidism, unspecified; I10 Essential (primary) hypertension; Z13.6 Encounter for screening for cardiovascular disorders
CPT/HCPCS: 80053; 80061; 83036; 84439; 84443

== ENCOUNTER 2022-02-05 08:57 | Emergency (ER) | payer MEDICARE, OTHER ==
[~2022-02-05] VITALS: Ht 152.4 cm; Wt 70.3 kg
[2022-02-05] MEDS ORDERED: OMEP20ER PO (09:56)
[2022-02-05] MEDS ORDERED: TIOT18 INH (09:58)
[2022-02-05 10:29] LABS: BASOPHILS ABSOLUTE AUTO 0.07 K/mm3 (0.00-0.23); BASOPHILS PERCENT AUTO 1 % (0-2); EOSINOPHILS ABSOLUTE AUTO 0.21 K/mm3 (0.00-0.68); EOSINOPHILS PERCENT AUTO 2 % (0-6); Hematocrit 38.9 % (33.0-51.0); Hemoglobin 13.6 g/dL (11.5-16.0); IMMATURE GRAN ABSOLUTE AUTO 0.04 K/mm3 (0.00-0.10); IMMATURE GRAN PERCENT AUTO 0 % (0-1); LYMPHOCYTES ABSOLUTE AUTO 2.44 K/mm3 (0.84-5.20); LYMPHOCYTES PERCENT AUTO 27 % (21-46); MONOCYTES PERCENT AUTO 11 % (4-13); Mean Corpuscular HGB 33.8 pg (26.0-34.0); Mean Corpuscular Volume 97 fL (80-100); Mean Platelet Volume 8.4 fL (9.1-12.4); NEUTROPHILS ABSOLUTE AUTO 5.22 K/mm3 (1.96-9.15); NEUTROPHILS PERCENT AUTO 58 % (41-73); Platelet Count 345 K/mm3 (150-400); RDW Coefficient Variation 11.8 % (11.7-14.2); RDW Standard Deviation 42.3 fL (35.1-46.3); Red Blood Cell Count 4.02 M/mm3 (3.80-5.20); White Blood Cell Count 8.98 K/mm3 (4.00-11.30)
[2022-02-05 10:46] LABS: Albumin, Blood 3.5 g/dL (3.4-5.0); Albumin/Globulin Ratio 0.8 (0.8-1.8); Bilirubin, Total 0.4 mg/dL (0.1-1.0); Bun/Creatinine Ratio 19.6 (12.0-20.0); C-REACTIVE PROTEIN, EXT RANGE 0.391 mg/dL (0.000-0.300); Calcium, Blood 8.9 mg/dL (8.5-10.1); Creatinine, Blood 0.56 mg/dL (0.40-1.00); Globulin, Blood 4.3 g/dL (2.2-4.0); Potassium, Blood 4.4 mmol/L (3.5-5.5); Total Protein, Blood 7.8 g/dL (6.4-8.2)
[2022-02-05] MEDS ORDERED: CLIN300 PO ×2 (11:57→12:14)
== END 2022-02-05 14:13 | disposition home or self-care (01) ==
LOC: ER 08:57
PROVIDERS: Physician Assistant
DX: L03.116 Cellulitis of left lower limb (principal); E87.1 Hypo-osmolality and hyponatremia; I10 Essential (primary) hypertension; E11.9 Type 2 diabetes mellitus without complications; F17.210 Nicotine dependence, cigarettes, uncomplicated; Z88.2 Allergy status to sulfonamides; Z79.899 Other long term (current) drug therapy
CPT/HCPCS: 36415; 80053; 84145; 85025; 86140; 93926; 93971; 99284-25; A9270

== ENCOUNTER 2022-02-13 16:31 | Emergency (ER) | payer MEDICARE, OTHER ==
[~2022-02-13] VITALS: Ht 152.4 cm; Wt 72.1 kg
[~2022-02-13 16:31] MED LIST changes: +CLIN300 PO; +OMEP20ER PO
[2022-02-14] MEDS ORDERED: CLIN150 PO (15:40)
== END 2022-02-13 18:53 | disposition home or self-care (01) ==
LOC: ER 16:31
DX: R60.0 Localized edema (principal); I10 Essential (primary) hypertension; E11.9 Type 2 diabetes mellitus without complications; J44.9 Chronic obstructive pulmonary disease, unspecified; E03.9 Hypothyroidism, unspecified; F17.210 Nicotine dependence, cigarettes, uncomplicated; Z88.2 Allergy status to sulfonamides; Z79.899 Other long term (current) drug therapy
CPT/HCPCS: A9270; J1885

== ENCOUNTER 2022-03-06 01:28 | Observation (INO) | payer MEDICARE, OTHER ==
[~2022-03-06] VITALS: Ht 167.6 cm; Wt 80.6 kg
[~2022-03-06 01:28] MED LIST changes: +CLIN150 PO
[2022-03-06 01:57] LABS: BASOPHILS ABSOLUTE AUTO 0.06 K/mm3 (0.00-0.23); BASOPHILS PERCENT AUTO 1 % (0-2); EOSINOPHILS ABSOLUTE AUTO 0.04 K/mm3 (0.00-0.68); EOSINOPHILS PERCENT AUTO 0 % (0-6); Hematocrit 39.5 % (33.0-51.0); Hemoglobin 13.8 g/dL (11.5-16.0); IMMATURE GRAN ABSOLUTE AUTO 0.14 K/mm3 (0.00-0.10); IMMATURE GRAN PERCENT AUTO 1 % (0-1); LYMPHOCYTES ABSOLUTE AUTO 0.98 K/mm3 (0.84-5.20); LYMPHOCYTES PERCENT AUTO 10 % (21-46); MONOCYTES ABSOLUTE AUTO 0.56 K/mm3 (0.16-1.47); MONOCYTES PERCENT AUTO 5 % (4-13); Mean Corpuscular HGB 33.3 pg (26.0-34.0); Mean Corpuscular HGB Conc 34.9 g/dL (31.5-36.5); Mean Corpuscular Volume 95 fL (80-100); Mean Platelet Volume 8.5 fL (9.1-12.4); NEUTROPHILS ABSOLUTE AUTO 8.51 K/mm3 (1.96-9.15); NEUTROPHILS PERCENT AUTO 83 % (41-73); Platelet Count 382 K/mm3 (150-400); RDW Coefficient Variation 11.9 % (11.7-14.2); RDW Standard Deviation 41.3 fL (35.1-46.3); Red Blood Cell Count 4.15 M/mm3 (3.80-5.20); White Blood Cell Count 10.29 K/mm3 (4.00-11.30)
[2022-03-06 02:04] LABS: Alanine Aminotransfer (ALT/SGP 30 U/L (12-78); Albumin, Blood 3.8 g/dL (3.4-5.0); Albumin/Globulin Ratio 0.8 (0.8-1.8); Alk Phos 111 U/L (50-136); Anion Gap 9 mmol/L (6-16); Aspartate Aminotrans (AST/SGOT 32 U/L (12-37); Bilirubin, Total 0.5 mg/dL (0.1-1.0); Blood Urea Nitrogen 12 mg/dL (8-24); Bun/Creatinine Ratio 21.4 (12.0-20.0); CO2, Blood 26 mmol/L (21-32); Calcium, Blood 8.7 mg/dL (8.5-10.1); Chloride, Blood 87 mmol/L (98-108); Creatinine, Blood 0.56 mg/dL (0.40-1.00); Ethanol (Alcohol), Blood, Med <3 mg/dL; Globulin, Blood 4.6 g/dL (2.2-4.0); Glomerular Filtration Rate 99 (60-); Glucose, Blood 171 mg/dL (70-99); Potassium, Blood 4.4 mmol/L (3.5-5.5); Sodium, Blood 122 mmol/L (136-145); Total Protein, Blood 8.4 g/dL (6.4-8.2)
[2022-03-06 05:37] LABS: U Amphetamine Screen Not Detected; U Barbituate Screen Not Detected; U Benzodiazapine Screen Not Detected; U Buprenorphine Screen Not Detected; U Cannabinoids Screen Not Detected; U Cocaine Screen Not Detected; U Methadone Screen Not Detected; U Methamphetamine Screen Not Detected; U Opiates Screen Not Detected; U Oxycodone Screen DETECTED; U Phencyclidine Screen Not Detected; U Propoxyphene Screen Not Detected
[2022-03-06 05:50] LABS: Bun/Creatinine Ratio 20.1 (12.0-20.0); Calcium, Blood 7.9 mg/dL (8.5-10.1); Creatinine, Blood 0.5 mg/dL (0.40-1.00); Potassium, Blood 3.8 mmol/L (3.5-5.5); Thyroid Stimulating Hormone 0.418 uIU/mL (0.360-4.800)
[2022-03-06 05:57] LABS: Base Excess Venous 3.5 mmol/L; Bicarbonate Venous 26.2 mmol/L (24.0-30.0); PCO2 Venous 52.5 mmHg (38-42); PO2 Venous 48.4 mmHg (38-42); pH Blood Venous 7.35 (7.34-7.37)
[2022-03-06 10:23] LABS: Bun/Creatinine Ratio 17.2 (12.0-20.0); Calcium, Blood 8.5 mg/dL (8.5-10.1); Creatinine, Blood 0.47 mg/dL (0.40-1.00); Potassium, Blood 3.6 mmol/L (3.5-5.5)
[2022-03-06] MEDS ORDERED: [UNRECOGNIZED DRUG - OTHER] PO (10:33)
[2022-03-06] MEDS ORDERED: BISA10S PR (10:34)
[2022-03-06] MEDS ORDERED: TUMS500 MG PO (10:35)
[2022-03-06] MEDS ORDERED: ZYRTEC10 M1 PO (10:35)
[2022-03-06] MEDS ORDERED: IBUP400 PO (10:37)
[2022-03-06] MEDS ORDERED: METF500 PO (10:38)
[2022-03-06] MEDS ORDERED: DULCOLAX400 MG/5 M PO (10:39)
[2022-03-06] MEDS ORDERED: METO5A PO (10:39)
[2022-03-06] MEDS ORDERED: MIRALAX17 GM PO (10:40)
[2022-03-06] MEDS ORDERED: ONDA4ODT MM (10:41)
[2022-03-06] MEDS ORDERED: PROBIOTIC PO (10:43)
--- NOTE | 2022-03-06 11:02 | NUR ---
AM NOTE: PATIENT ALERT AND ORIENTED X4. ABLE TO ANSWER ALL QUESTIONS APPROPRIATLEY THIS AM. QUITE SLEEPY. ABLE TO MOVE ALL EXTREMITIES IN BED. STATES SHE USES WHEELCHAIR MOST OF THE TIME AND WALKS SOME AT HOME. STATES SHE HAS NUMBNESS/TINGLING IN BLE. BEDREST AT THIS TIME. BED ALARM IN PLACE. ON 3-4L NASAL CANNULA SATING LOW 90'S. DENIES O2 USE AT HOME. LUNGS SOUNDING CLEAR WITH OCCASIONAL EXPIRATORY WHEEZE. OCCASIONAL NONPRODUCTIVE COUGH. TELE SHOWING SINUS RHYTHM - SINUS TACH WITH HR 90-110'S. DENIES CHEST PAIN/PRESSURE. BP STABLE. PALPABLE PERIPHERAL PULSES. DENIES ABDOMINAL PAIN/NAUSEA. STATES NAUSEA COMES AND GOES. SAFELY SWALLOWING. DIET ORDERED. PURE WICK CHANGED OUT THIS AM, JOSHUA CARE AND POWDERED. PATIENT HAS HAD LARGE AMOUNT OF URINE OUTPUT THIS AM. BOWEL TONES PRESENT. BLE REDNESS AND WARMTH. DR. YU IN THIS AM AND AWARE OF REDNESS TO LEGS. WITH PATIENT PERMISSION, [facility] CALLED AND ALAYNA FROM [facility] FAXED PATIENT MED LIST. MED REC COMPLETED AND DR. YU UPDATED. COMPLAINS OF PAIN TO RIGHT SHOULDER, BLE, AND LOW BACK. MEDICATED WITH TYLENOL THIS AM WITH MINIMAL RELIEF. WILL CONTINUE TO MONITOR.
--- NOTE | 2022-03-06 15:47 | NUR ---
SPOKE WITH DR. SILVER. PATIENT OKAY TO BE ON ROOM AIR WITH SPO2 AT 88% OR ABOVE. PATIENT 88-92% ON ROOM AIR.
--- NOTE | 2022-03-06 16:33 | NUR ---
TRANSFER NOTE: PATIENT MEDICAL STATUS WITH TELE. NO ACUTE CHANGES. NOTED TO DESAT TO MID 80'S ON ROOM AIR WHEN UP TO BSC. HOME O2 EVAL BEING DONE AT THIS TIME. TELE REMAINS UNCHANGED. UP TO BSC MUTLITPLE TIMES EACH HOUR TO URINATE. NEURO REMAINS CLEAR AND ALERT. COMPLAINS OF PAIN TO SHOULDER, LOW BACK AND BLE. HOME OXYCODONE ORDERED AND GIVEN PER HOME SCHEDULE. POSSIBLE DISCHARGE TOMORROW, REPORTED OFF TO MEDICAL FLOOR NURSE. TRANSPORTED VIA WHEELCHAIR WITH ALL PERSONAL BELONGINGS. NS X1 BAG INFUSED.
--- NOTE | 2022-03-06 17:46 | NUR ---
PT ARRIVED TO THE MEDICAL FLOOR FROM THE PCU VIA WHEELCHAIR. THE PT WAS A STAND PIVOT FROM THE CHAIR TO THE BED. THE PT APPEARS TO BE BREATHING EASILY ON O2 @ 2L/MIN VIA NC. PT IS SOB WITH ACTIVITY. THE PT WAS ORIENTED TO THE ROOM LAYOUT AND CALL SYSTEM. PT WAS MEDICATED FOR CHRONIC PAIN WITH TYLENOL. CALL LIGHT IN REACH WILL CONTINUE TO MONIOTR AND ASSESS FOR CHANGES
[2022-03-07 03:46] LABS: Source, Urine Clean Catch
[2022-03-07 03:49] LABS: Bilirubin, Urine Neg (Neg); Blood, Urine Neg (Neg); Glucose Qualitative, Urine Neg (Neg); Ketones, Urine Neg (Neg); Leukocyte Esterase, Urine Neg (Neg); Nitrite, Urine Neg (Neg); Protein, Urine Neg (Neg); Specific Gravity, Urine 1.005 (1.003-1.022); Urobilinogen, Urine NORM (Normal)
[2022-03-07 03:53] LABS: Appearance, Urine Clear (Clear); Color, Urine Pale Yellow (P-Yellow)
--- NOTE | 2022-03-07 05:28 | NUR ---
GENERAL MANAGER SUMMARY ADMITTED FOR AMS; LIKELY DUE TO HYPONATREMIA. PT'S MENTATION STEADILY IMPROVED THROUGHOUT SHIFT. PT NOW AAOX4. RESPIRATORY STATUS REMAINS SUBOPTIMAL COMPARED TO PREADMISSION. SEVERAL EPISODES OF INCONTINENCE LIKELY DUE TO AGGRESSIVE ivf HYDRATION. PLANS TO D/C WITH HOME O2 LIKELY TO PROCEED PLANNED. NO ISSUES NOTED THROUGHOUT SHIFT.
[2022-03-07 05:53] LABS: BASOPHILS ABSOLUTE AUTO 0.06 K/mm3 (0.00-0.23); BASOPHILS PERCENT AUTO 1 % (0-2); EOSINOPHILS ABSOLUTE AUTO 0.11 K/mm3 (0.00-0.68); EOSINOPHILS PERCENT AUTO 2 % (0-6); Hematocrit 37.4 % (33.0-51.0); IMMATURE GRAN ABSOLUTE AUTO 0.05 K/mm3 (0.00-0.10); IMMATURE GRAN PERCENT AUTO 1 % (0-1); LYMPHOCYTES ABSOLUTE AUTO 1.75 K/mm3 (0.84-5.20); LYMPHOCYTES PERCENT AUTO 27 % (21-46); MONOCYTES ABSOLUTE AUTO 0.81 K/mm3 (0.16-1.47); MONOCYTES PERCENT AUTO 12 % (4-13); Mean Corpuscular HGB 33.2 pg (26.0-34.0); Mean Corpuscular HGB Conc 34.8 g/dL (31.5-36.5); Mean Corpuscular Volume 95 fL (80-100); Mean Platelet Volume 8.2 fL (9.1-12.4); NEUTROPHILS ABSOLUTE AUTO 3.74 K/mm3 (1.96-9.15); NEUTROPHILS PERCENT AUTO 57 % (41-73); Platelet Count 344 K/mm3 (150-400); RDW Standard Deviation 41.8 fL (35.1-46.3); Red Blood Cell Count 3.92 M/mm3 (3.80-5.20); White Blood Cell Count 6.52 K/mm3 (4.00-11.30)
[2022-03-07 06:24] LABS: Albumin, Blood 3.2 g/dL (3.4-5.0); Albumin/Globulin Ratio 0.8 (0.8-1.8); Bilirubin, Total 0.7 mg/dL (0.1-1.0); Bun/Creatinine Ratio 12.7 (12.0-20.0); Calcium, Blood 8.5 mg/dL (8.5-10.1); Creatinine, Blood 0.47 mg/dL (0.40-1.00); Potassium, Blood 3.2 mmol/L (3.5-5.5); Total Protein, Blood 7.2 g/dL (6.4-8.2)
[2022-03-07] MEDS ORDERED: BANATROL PLUS1 EAC1 PO (11:47)
[2022-03-07 11:52] LABS: Calcium, Blood 8.4 mg/dL (8.5-10.1); Creatinine, Blood 0.43 mg/dL (0.40-1.00); Potassium, Blood 3.5 mmol/L (3.5-5.5)
[2022-03-07 13:48] LABS: Influenza A, PCR NEGATIVE (NEGATIVE); Influenza B, PCR NEGATIVE (NEGATIVE); Resp Syncytial Virus, PCR NEGATIVE (NEGATIVE); SARS-Cov-2 (COVID-19) PCR, MMC NEGATIVE (NEGATIVE)
--- NOTE | 2022-03-07 15:20 | NUR ---
PT DISCHARGED THE PT VERBALIZED UNDERSTANDING OF THE DC INSTRUCTIONS. ORDERS WERE FAXED TO THE [facility] AND SENT WITH THE ESCORT. THE PT WAS TRANSFERED VIA WHEELCHAIR ACCOMPANIED BY [facility] ESC[facility]. A FOLLOW UP APPOINTMENT WAS SCHEDULED FOR THE PT PRIOR TO DC
== END 2022-03-07 15:10 ==
LOC: ER 01:28 → PCU 01:29 → MEDS 17:12
PROVIDERS: Emergency Medicine; Family Medicine; ADMIT Family Medicine
DX: R41.82 Altered mental status, unspecified (principal); J96.01 Acute respiratory failure with hypoxia; E87.1 Hypo-osmolality and hyponatremia; L03.116 Cellulitis of left lower limb; L03.115 Cellulitis of right lower limb; I10 Essential (primary) hypertension; K21.9 Gastro-esophageal reflux disease without esophagitis; G89.29 Other chronic pain; M54.9 Dorsalgia, unspecified; F32.A Depression, unspecified; F41.1 Generalized anxiety disorder; E11.9 Type 2 diabetes mellitus without complications; J44.9 Chronic obstructive pulmonary disease, unspecified; E03.9 Hypothyroidism, unspecified; E66.9 Obesity, unspecified; Z68.27 Body mass index [BMI] 27.0-27.9, adult; Z20.822 Contact with and (suspected) exposure to COVID-19
CPT/HCPCS: 0241U; 36415; 70450; 71045; 80048; 80053; 81003; 82140; 82803; 82947; 83930; 83935; 84443; 85025; 93005; 93010; 94640; 94664; 94760; 94761; 94762; 96372; 96374; 99285-25; A9270; G0378; G0480; J1650; J2405; J7030

== ENCOUNTER 2022-07-05 10:30 | Emergency (ER) | payer MEDICARE, OTHER ==
[~2022-07-05] VITALS: Ht 152.4 cm; Wt 77.1 kg
[~2022-07-05 10:30] MED LIST changes: +BANATROL PLUS1 EAC1 PO; +BISA10S PR; +DULCOLAX400 MG/5 M PO; +IBUP400 PO; +PROBIOTIC PO; +ZYRTEC10 M1 PO; +[UNRECOGNIZED DRUG - OTHER] PO
== END 2022-07-05 17:24 | disposition home or self-care (01) ==
LOC: ER 10:30
DX: S22.080A Wedge compression fracture of T11-T12 vertebra, initial encounter for closed fracture (principal); M48.061 Spinal stenosis, lumbar region without neurogenic claudication; W19.XXXA Unspecified fall, initial encounter; I10 Essential (primary) hypertension; E11.9 Type 2 diabetes mellitus without complications; J44.9 Chronic obstructive pulmonary disease, unspecified; E03.9 Hypothyroidism, unspecified; K21.9 Gastro-esophageal reflux disease without esophagitis; Z79.899 Other long term (current) drug therapy; Z79.84 Long term (current) use of oral hypoglycemic drugs; Z88.2 Allergy status to sulfonamides; F17.210 Nicotine dependence, cigarettes, uncomplicated
CPT/HCPCS: 36415; 72146; 72148; 93005; 93010; 96374; 96375; 96376; 99284-25; A9270; J1170; J1885

== ENCOUNTER 2022-07-08 14:15 | Emergency (ER) | payer MEDICARE, OTHER ==
[~2022-07-08] VITALS: Ht 160 cm; Wt 77.1 kg
[2022-07-09] MEDS ORDERED: FURO20 PO (12:50)
[2022-07-09] MEDS ORDERED: LACT10SY PO (12:53)
[2022-07-09] MEDS ORDERED: MUPIROCIN15 GM TOP (12:55)
== END 2022-07-08 21:47 | disposition home or self-care (01) ==
LOC: ER 14:15
DX: M54.50 Low back pain, unspecified (principal); R06.2 Wheezing; I10 Essential (primary) hypertension; E11.9 Type 2 diabetes mellitus without complications; J44.9 Chronic obstructive pulmonary disease, unspecified; E03.9 Hypothyroidism, unspecified; K21.9 Gastro-esophageal reflux disease without esophagitis; F17.210 Nicotine dependence, cigarettes, uncomplicated; Z79.899 Other long term (current) drug therapy; Z79.890 Hormone replacement therapy; Z79.84 Long term (current) use of oral hypoglycemic drugs
CPT/HCPCS: 71046; 94640; 94644; 94664; J1100; J1170

== ENCOUNTER 2022-07-09 11:56 | Inpatient (IN) | payer MEDICARE, OTHER ==
[~2022-07-09] VITALS: Ht 152.4 cm; Wt 78.9 kg
[~2022-07-09 11:56] MED LIST changes: +CELEXA40 M1 PO; +Oxybutynin Chlo15 MG PO; +VITAMIN B COMP1 EAC1 PO; -[UNRECOGNIZED DRUG - OTHER] PO
[2022-07-09] MEDS ORDERED: FURO20 PO (12:50)
[2022-07-09] MEDS ORDERED: LACT10SY PO (12:53)
[2022-07-09] MEDS ORDERED: MUPIROCIN15 GM TOP (12:55)
[2022-07-09 13:10] LABS: BASOPHILS ABSOLUTE AUTO 0.02 K/mm3 (0.00-0.23); BASOPHILS PERCENT AUTO 0 % (0-2); EOSINOPHILS ABSOLUTE AUTO 0.01 K/mm3 (0.00-0.68); EOSINOPHILS PERCENT AUTO 0 % (0-6); Hematocrit 33.9 % (33.0-51.0); Hemoglobin 12.3 g/dL (11.5-16.0); IMMATURE GRAN ABSOLUTE AUTO 0.07 K/mm3 (0.00-0.10); IMMATURE GRAN PERCENT AUTO 1 % (0-1); LYMPHOCYTES ABSOLUTE AUTO 0.59 K/mm3 (0.84-5.20); LYMPHOCYTES PERCENT AUTO 7 % (21-46); MONOCYTES PERCENT AUTO 5 % (4-13); Mean Corpuscular HGB 34.9 pg (26.0-34.0); Mean Corpuscular HGB Conc 36.3 g/dL (31.5-36.5); Mean Corpuscular Volume 96 fL (80-100); Mean Platelet Volume 8.6 fL (9.1-12.4); NEUTROPHILS ABSOLUTE AUTO 7.06 K/mm3 (1.96-9.15); NEUTROPHILS PERCENT AUTO 87 % (41-73); Platelet Count 380 K/mm3 (150-400); RDW Coefficient Variation 12.7 % (11.7-14.2); RDW Standard Deviation 45.2 fL (35.1-46.3); Red Blood Cell Count 3.52 M/mm3 (3.80-5.20); White Blood Cell Count 8.15 K/mm3 (4.00-11.30)
[2022-07-09 13:26] LABS: Albumin, Blood 3.3 g/dL (3.4-5.0); Albumin/Globulin Ratio 0.7 (0.8-1.8); Bilirubin, Total 0.8 mg/dL (0.1-1.0); Bun/Creatinine Ratio 25.3 (12.0-20.0); Calcium, Blood 8.9 mg/dL (8.5-10.1); Creatinine, Blood 0.67 mg/dL (0.40-1.00); Globulin, Blood 4.5 g/dL (2.2-4.0); Potassium, Blood 4.9 mmol/L (3.5-5.5); Total Protein, Blood 7.8 g/dL (6.4-8.2)
[2022-07-09 14:33] LABS: Thyroid Stimulating Hormone 0.213 uIU/mL (0.360-4.800)
[2022-07-09 14:38] LABS: Influenza A, PCR NEGATIVE (NEGATIVE); Influenza B, PCR NEGATIVE (NEGATIVE); Resp Syncytial Virus, PCR NEGATIVE (NEGATIVE); SARS-Cov-2 (COVID-19) PCR, MMC NEGATIVE (NEGATIVE)
[2022-07-09 16:24] LABS: Source, Urine Clean Catch
--- NOTE | 2022-07-09 16:33 | NUR ---
MET WITH SPECIAL EDUCATION TEACHERS, ASKING FOR PALLIATIVE CARE TO TALK TO PT RE CODE STATUS. PT IS CURRENTLY DNR W CC, TODAY IS THE 3RD ED VISIT ON A WEEK AND CURRENTLY PT IS ASKING TO BE ADMITTED FOR TREATMENT. CARE CONF WITH RN CARING FOR THE PT, SHE REPORTS PT IS CAOX3, ANSWERING ALL QUESTIONS APPROP. MET WITH PT, SHE IS ANXIOUS, GRIMACING AND C/O 8/10 LOWER BACK PAIN. PT IS SPEAKING IN FULL SENTANCES AND COOPERATIVE. PT IS ORIENTED TO PERSON, TIME, PLACE AND EVENT. PER PT SHE LIVES IN A HOME WHERE THE OWNERS HELP TAKE CARE OF HER. SHE REPORTS SHE HAS HAD SEVERAL FALLS IN THE LAST SEVERAL WEEKS. MOST RECENT FALL WAS A WEEK AGO WHEN HER BACK PAIN STARTED. PT USUALLY USES A WC OR WALKER, BUT FELL WHEN WALKING TO THE BR. SHE THEN REPORTS THAT SHE CANNOT ANWER ANYMORE QUESTIONS UNTIL SHE GETS SOME PAIN MEDICATION. I ADVISED HER THAT SHE IS BEING ADMITTED AND WE NEEDED TO ADDRESS HER CODE STATUS. ADVISED HER THAT CURRENTLY SHE IS A DNR WITH CC. PROVIDED EDUCATRION ON WHAT DNR CC MEANS AND SHE REPORTS THAT SHE NO LONGER WANTS TO BE COMFORT CARE. SHE REPORTS THAT SHE HAS CHANGED HER MIND. SHE STILL DOES NOT WANT CPR IF HER HEART STOPS, BUT DOES WANT TO GO TO THE HOSPITAL, BE ADMITTED AND TREATED IF INDICATED AND APPROPRIATE. ADVISED HER THAT ONCE SHE IS COMFORTABLE, WE WILL DISCUSS FURTHER AND HAVE A NEW POLST FILLED OUT AND SIGNED. SHE VU ED TALENT MANAGER AND DR SOLORZANO UPDATED WITH PT CURRENT WISHES AND PLAN.
[2022-07-09 16:34] LABS: Appearance, Urine Clear (Clear); Bilirubin, Urine Neg (Neg); Blood, Urine Neg (Neg); Color, Urine Yellow (P-Yellow); Glucose Qualitative, Urine Neg (Neg); Ketones, Urine 2+ (Neg); Leukocyte Esterase, Urine Neg (Neg); Nitrite, Urine Neg (Neg); Protein, Urine 1+ (Neg); Urobilinogen, Urine 1+ (Normal)
--- NOTE | 2022-07-09 18:42 | NUR ---
PT ARRIVED FROM ED. PT PLACED ON TELE, CONFIRMED PT INFOR AND BOX # WITH CARSON GUNTER SR 90'S. DUAL NURSE SKIN ASSESSMENT COMPLETED BY AMELIE, RN AND VAISHALI RN. NO SKIN BREAKDOWN NOTED, SMALL AMOUNT OF REDNESS TO GROIN D/T INCONTINENCE. PT REMAINS ON 2L NS, SPO2 > 90%. PUREWICK IN PLACE. CALL LIGHT WITHIN REACH.
--- NOTE | 2022-07-10 06:30 | NUR ---
SHIFT SUMMARY A/OX3, 2P ASSIST FOR REPOSITIONING AND CHANGES. INCONT, PUREWICK AND ATTENDS IN PLACE. C/O PAIN, MEDICATED PER EMAR X2. PT STATES OXYCODONE MAKES HER PAIN WORSE AND HAS TROUBLE SWALLOWING. REQUESTING THAT HOSPITALIST ORDER HER IV PAIN MEDICATIONS INSTEAD. DOES NOT APPEAR TO HAVE DIFFICULTY SWALLOWING AT THIS TIME, TOLEARTING PO INTAKE. TELE SR IN THE 90S. VSS, NO ACUTE CHANGES AT THIS TIME. BED IN LOWEST POSITION WITH CALL LIGHT IN REACH. WILL CONTINUE TO MONITOR AND REPORT TO ONCOMING RN.
--- NOTE | 2022-07-10 10:56 | NUR ---
CALL PLACED TO DR. YU TO UPDATE ON PATIENT PAIN. NO NEW ORDERS FOR THIS RN TO PLACE.
--- NOTE | 2022-07-10 14:40 | NUR ---
SENIOR TELECOMMUNICATIONS ENGINEER NOTIFIED THIS RN OF 8 SEC RUN OF SVT WITH HR TOUCHING 185. PATIENT WATCHING TV IN BED, DENIES ALL SYMPTOMS. CALL PLACED TO DR. YU TO UPDATE ON SVT. NO NEW ORDERS TO PLACE. ORDERS FOR THIS RN TO CONTINUE TO MONITOR AND CALL TO UPDATE ON TELE EVENTS. NA BLOOD ORDERS FOR Q6 X3. SEE LAB ORDERS.
--- NOTE | 2022-07-10 14:55 | NUR ---
Kiddie Kist NOTIFIED THIS RN OF SECOND RUN OF SVT LASTING 6 SECONDS WITH HR UP TO 190'S. PATIENT STATES SHE WAS TRYING TO "FART". NO CARDIAC SYMPTOMS. VITAL SIGNS STABLE. HR 95, BP 133/81. CALL PLACED TO DR. YU, NO ANSWER AT THIS TIME. WILL ATTEMPT TO CALL BACK.
--- NOTE | 2022-07-10 15:10 | NUR ---
MET WITH PT IN HER ROOM. SHE IS RESTING COMF SITTING UPRIGHT IN HER BED. SHE REPORTS THAT SHE IS FEELING MUCH BETTER TODAY AND PAIN IS BETTER MANAGED. SHE DOEDS REPORTS THAT SHE DIDNT SLEEP VERY WELL LAST NOC R/T PAIN AND ASKED TO HAVE TRAZADONE ORDERED AT NIGHT FOR SLEEP. ADVISED HER THAT I WILL LOOK AT HER ORDERS AND TALK TO HER NURSE AND PROVIDER ABOUT THIS. PT WAS ADMITTED FOM THE ED LAST NOC AND AT THAT TIME PT WAS A DNR/CC. I MET WITH HER IN THE ED AND SHE WANTED TO BE ADMITTED AND CHANGE HER CODE STATUS TO FULL CODE. HOWEVER, SHE WAS IN ALOT OF PAIN AND DIDNT WANT TO FILL OUT ANY FORMS UNTIL SHE FELT BETTER. TODAY, PT IS CAOX4, SITTING UPRIGHT IN BED AND COOPERATIVE. WE DISCUSSED THE POLST IN DETAIL, SHE DECIDED THAT SHE WANTS TO BE A FULL CODE WITH FULL TREATMENT. WE FILLED OUT THE POLST AND THE PATIENT SIGNED IT. COMPLETED POLST IS PLACED ON THE WHITE BOARD IN THE ROOM, RN IS NOTIFIED AND PLACED A CALL TO DR YU TO UPDATE HER AND ASKED FOR A SIGNATURE THE NEXT TIME THEY ROUND, SHE VU. TRAZADONE WAS ALREADY ORDERED AND ON THE EMAR. CALL TO RN TO UPDATE HER AND ASKED THAT SHE UPDATE THE PATIENT WITH THIS INFORMATION. PALLIATIVE CARE WILL CONTINUE TO FOLLOW AND SUPPORT.
--- NOTE | 2022-07-10 15:43 | NUR ---
EKG COMPLETED AND IN CHART. EKG SHOWING SINUS TACH AND INCOMPLETE RIGHT BBB.
--- NOTE | 2022-07-10 16:39 | NUR ---
DR. YU BY TO ASSESS PATIENT. NO NEW ORDERS FOR THIS RN, WE WILL CONTINUE TO MONITOR TELE OVERNIGHT.
--- NOTE | 2022-07-10 18:40 | NUR ---
SHIFT SUMMARY: SEE PREVIOUS NOTES FOR SMALL UPDATES THROUGHOUT DAY. ALERT AND ORIENTED X3-4. PERRLA. N/T TO LEGS. Q2 TURNING AND SITTING IN EDGE OF BED FOR MEALS. TELE SHOWING SINUS RHYTHM WITH HR 80-90'S. SEE PREVIOUS NOTES ABOUT SVT. EKG COMPLETED AND IN CHART. DR. YU AWARE. BP STABLE. DENIES CARDIAC SYMPTOMS. ON 2L NASAL CANNULA SATING MID 90'S. INTERMIT WHEEZING WITH PRN BREATHING TREATMENTS. DENIES ABDOMINAL PAIN/NAUSEA. EATING SMALL AMOUNTS. MEDICATED X1 THIS SHIFT WITH ZOFRAN. COMPLAINS OF PAIN IN BACK, OXYCODONE GIVEN PER EMAR WITH FENTANYL 25 MCG X1 FOR BREAK THROUGH PAIN. CALL LIGHT IN REACH. BED LOW LOCKED POSITION. PURE WICK IN PLACE DRAINING WELL. ATTENDS C/D/I. SLEEPING AT THIS TIME. WILL CONTINUE TO MONITOR AND REPORT OFF TO ONCOMING RN.
[2022-07-10] MEDS ORDERED: POTA10T PO (22:05)
[2022-07-10] MEDS ORDERED: PREMARIN VAG (22:08)
[2022-07-10] MEDS ORDERED: SYMBICORT 160-4.6 GM INH (22:09)
[2022-07-11 01:53] LABS: BASOPHILS ABSOLUTE AUTO 0.02 K/mm3 (0.00-0.23); BASOPHILS PERCENT AUTO 0 % (0-2); EOSINOPHILS ABSOLUTE AUTO 0.04 K/mm3 (0.00-0.68); EOSINOPHILS PERCENT AUTO 0 % (0-6); Hematocrit 33.8 % (33.0-51.0); Hemoglobin 12.1 g/dL (11.5-16.0); IMMATURE GRAN ABSOLUTE AUTO 0.11 K/mm3 (0.00-0.10); IMMATURE GRAN PERCENT AUTO 1 % (0-1); LYMPHOCYTES ABSOLUTE AUTO 1.72 K/mm3 (0.84-5.20); LYMPHOCYTES PERCENT AUTO 16 % (21-46); MONOCYTES ABSOLUTE AUTO 1.48 K/mm3 (0.16-1.47); MONOCYTES PERCENT AUTO 14 % (4-13); Mean Corpuscular HGB 34.4 pg (26.0-34.0); Mean Corpuscular HGB Conc 35.8 g/dL (31.5-36.5); Mean Corpuscular Volume 96 fL (80-100); Mean Platelet Volume 8.3 fL (9.1-12.4); NEUTROPHILS PERCENT AUTO 69 % (41-73); Platelet Count 364 K/mm3 (150-400); RDW Coefficient Variation 12.6 % (11.7-14.2); RDW Standard Deviation 44.4 fL (35.1-46.3); Red Blood Cell Count 3.52 M/mm3 (3.80-5.20); White Blood Cell Count 10.87 K/mm3 (4.00-11.30)
[2022-07-11 02:08] LABS: Bun/Creatinine Ratio 25.1 (12.0-20.0); Calcium, Blood 8.6 mg/dL (8.5-10.1); Creatinine, Blood 0.52 mg/dL (0.40-1.00); Potassium, Blood 3.8 mmol/L (3.5-5.5)
--- NOTE | 2022-07-11 05:52 | NUR ---
SHIFT SUMMARY 67 YR F ADMITTED ON 07/09/22 FOR HYPONATERMIA. FULL CODE. NO ACUTE CHANGES THIS SHIFT. PT REQUESTED A NICOTINE PATCH SHE STATED SHE WAS REALLY CRAVING A CIGARETTE. HOSPITALIST NOTIFIED AND PATCH PLACED ON PT. SHE STATED THAT SHE IS NOT HAPPY WITH THE WAY HER MEDS ARE SET UP AND SHE WANTS TO SPEAK WITH HER DOC ABOUT CHANGING HER MED REC.
[2022-07-11 14:23] LABS: Bun/Creatinine Ratio 21.2 (12.0-20.0); Calcium, Blood 8.1 mg/dL (8.5-10.1); Creatinine, Blood 0.57 mg/dL (0.40-1.00); Magnesium, Blood 1.7 mg/dL (1.6-2.4); Potassium, Blood 4.4 mmol/L (3.5-5.5)
--- NOTE | 2022-07-11 19:52 | NUR ---
SHIFT SUMMARY- PT ALERT AND ORIENTED, CALLS APPROPRIATELY. PT WAS CALLING FREQUENTLY T/O THE FIRST HALF OF THE DAY C/O PAIN, ASKING FOR METHADONE INSTEAD OF OXY OR IV DILAUDID. TRIED OXY, BACLOFEN, IV TORADOL. THEN PT HAD A SIX SECOND RUN OF SVT AT A RATE OF [address] SILVER AND WHILE SPEAKING TO HIM THE PT HAD AN 8 SECOND RUN OF SVT AT A RATE OF 207. RECIEVED AN ORDER FOR PO METOPROLOL, PT HAD AN ADDITIONAL EPISODE OF SVT FOR 6 SECONDS AT 240. METOPROLOL GIVEN. IV DLAIUDID ORDERED TO HELP TREAT THE PT PAIN. T/O THESE EVENTS THE PT DENIES HAVING ANY SYMPTOMS, NO CP, PRESSURE, NUMBNESS AND TINGLING AT ALL. VSS. MEDICATED WITH DILAUDID LATER IN THE SHIFT AND RECIEVED A CALL FROM TELE PT HR DROPPED TO THE 70'S. PT HER HAS HELD STEADY AT MID 70'S TO LOW 80'S SINCE THEN, WITH NO FURTHER EVENTS. PASSED ALL ON TO NIGHT RN IN BEDSIDE REPORT. NIGHT RN WILL ADMINISTER NEXT DOSE OF DILAUDID. 1X DOSE OF NS AT 100ML/HR WAS STARTED. PT IN BED, CALL LIGHT IN REACH. NIGHT RN AT THE BEDSIDE.
--- NOTE | 2022-07-12 05:05 | NUR ---
SHIFT SUMMARY 56 YR F ADMITTED ON 07/09/22 FOR HYPONATREMIA. FULL CODE. PT HAS BEEN DIFFICULT THIS SHIFT AND HAS BEEN USING THE CALL LIGHT EXCESSIVELY. SHE IS CONSTANTLY ASKING FOR PAIN MEDS AND IS ARGUING WITH THE NURSE ABOUT THE TIMES AND SCHEDULING OF HER PAIN MEDS. SHE TOLD THIS NURSE SEVERAL TIMES THAT THE PRIOR SHIFT NURSE IS GIVING HER NARCOTIC MEDICATIONS TO HER ALL AT ONCE AND THAT IT WAS THE ONLY THING THAT IS CONTROLLING HER PAIN. PER PT'S EMAR, THIS IS NOT THE CASE. THIS NURSE EXPLAINED TO HER THAT SHE WOULD NOT ADMINISTER ALL NARCOTICS AT THE SAME TIME AND THE PT GOT UPSET ABOUT IT AND CONTINUALLY CALLED TO ASK FOR MORE MEDS. PT IS RUDE AND ABRASIVE TO STAFF. PER URBAN RENEWAL MANAGER SHE HAD ONE SHORT RUN OF SVT TODAY. PT SLEPT VERY LITTLE OVERNIGHT.
[2022-07-12 05:09] LABS: BASOPHILS ABSOLUTE AUTO 0.02 K/mm3 (0.00-0.23); BASOPHILS PERCENT AUTO 0 % (0-2); EOSINOPHILS ABSOLUTE AUTO 0.12 K/mm3 (0.00-0.68); EOSINOPHILS PERCENT AUTO 1 % (0-6); Hematocrit 39.3 % (33.0-51.0); Hemoglobin 13.5 g/dL (11.5-16.0); IMMATURE GRAN ABSOLUTE AUTO 0.09 K/mm3 (0.00-0.10); IMMATURE GRAN PERCENT AUTO 1 % (0-1); LYMPHOCYTES ABSOLUTE AUTO 3.06 K/mm3 (0.84-5.20); LYMPHOCYTES PERCENT AUTO 24 % (21-46); MONOCYTES ABSOLUTE AUTO 1.85 K/mm3 (0.16-1.47); MONOCYTES PERCENT AUTO 14 % (4-13); Mean Corpuscular HGB 33.9 pg (26.0-34.0); Mean Corpuscular HGB Conc 34.4 g/dL (31.5-36.5); Mean Corpuscular Volume 99 fL (80-100); Mean Platelet Volume 8.5 fL (9.1-12.4); NEUTROPHILS PERCENT AUTO 60 % (41-73); Platelet Count 400 K/mm3 (150-400); RDW Coefficient Variation 12.7 % (11.7-14.2); RDW Standard Deviation 45.8 fL (35.1-46.3); Red Blood Cell Count 3.98 M/mm3 (3.80-5.20); White Blood Cell Count 12.84 K/mm3 (4.00-11.30)
[2022-07-12 05:28] LABS: Albumin, Blood 3.1 g/dL (3.4-5.0); Albumin/Globulin Ratio 0.8 (0.8-1.8); Bilirubin, Total 0.6 mg/dL (0.1-1.0); Bun/Creatinine Ratio 22.6 (12.0-20.0); Calcium, Blood 8.9 mg/dL (8.5-10.1); Creatinine, Blood 0.58 mg/dL (0.40-1.00); Globulin, Blood 4.1 g/dL (2.2-4.0); Potassium, Blood 4.3 mmol/L (3.5-5.5); Total Protein, Blood 7.2 g/dL (6.4-8.2)
[2022-07-12 16:50] LABS: Bun/Creatinine Ratio 24.2 (12.0-20.0); Calcium, Blood 8.6 mg/dL (8.5-10.1); Creatinine, Blood 0.54 mg/dL (0.40-1.00); Potassium, Blood 4.5 mmol/L (3.5-5.5)
--- NOTE | 2022-07-12 18:10 | NUR ---
SHIFT SUMMARY: PT A&O X4, PLEASANT AND HAPPY. PT ABLE TO SIT UP ON SIDE OF BED FOR ALL MEALS. PT HAD MODERATE PAIN THROUGHOUT SHIFT, PT MEDICATED PER EMAR PROTOCOL. PT PAIN MANAGED WITH PRN PAIN MEDICATION. PT URINATED >1500ML URINE DURING THE SHIFT. PT ON 500ML FREE WATER RESTRICTION. PT SODIUM LEVEL 127, DR. MOORE CONTACTED AND UPDATED FREE WATER RESTRICTION 0ML. PT IN BED WITH CALL LIGHT WITHIN REACH.
[2022-07-13 04:47] LABS: BASOPHILS ABSOLUTE AUTO 0.02 K/mm3 (0.00-0.23); BASOPHILS PERCENT AUTO 0 % (0-2); EOSINOPHILS ABSOLUTE AUTO 0.17 K/mm3 (0.00-0.68); EOSINOPHILS PERCENT AUTO 2 % (0-6); Hematocrit 37.7 % (33.0-51.0); Hemoglobin 12.7 g/dL (11.5-16.0); IMMATURE GRAN ABSOLUTE AUTO 0.08 K/mm3 (0.00-0.10); IMMATURE GRAN PERCENT AUTO 1 % (0-1); LYMPHOCYTES ABSOLUTE AUTO 2.84 K/mm3 (0.84-5.20); LYMPHOCYTES PERCENT AUTO 27 % (21-46); MONOCYTES ABSOLUTE AUTO 1.12 K/mm3 (0.16-1.47); MONOCYTES PERCENT AUTO 11 % (4-13); Mean Corpuscular HGB 33.4 pg (26.0-34.0); Mean Corpuscular HGB Conc 33.7 g/dL (31.5-36.5); Mean Corpuscular Volume 99 fL (80-100); Mean Platelet Volume 8.5 fL (9.1-12.4); NEUTROPHILS ABSOLUTE AUTO 6.24 K/mm3 (1.96-9.15); NEUTROPHILS PERCENT AUTO 60 % (41-73); Platelet Count 396 K/mm3 (150-400); RDW Coefficient Variation 12.4 % (11.7-14.2); RDW Standard Deviation 45.4 fL (35.1-46.3); White Blood Cell Count 10.47 K/mm3 (4.00-11.30)
[2022-07-13 05:05] LABS: Bun/Creatinine Ratio 31.1 (12.0-20.0); Calcium, Blood 8.8 mg/dL (8.5-10.1); Creatinine, Blood 0.58 mg/dL (0.40-1.00); Potassium, Blood 4.3 mmol/L (3.5-5.5)
--- NOTE | 2022-07-13 07:14 | NUR ---
SHIFT SUMMARY PATIENT ALERT AND ORIENTED. MEDICATED PER EMAR FOR PAIN. SHORTNESS OF BREATH TREATED BY RT. NO ACUTE ISSUES NOTED OVERNIGHT. CALL LIGHT WITHIN REACH. REPORT GIVEN TO ONCOMING RN.
--- NOTE | 2022-07-13 09:00 | NUR ---
PT PLEASANT COOP A/O X3, KNOWS WHEN NEXT PAIN AND NAUSEA MEDS ARE DUE AND CALLS REGULARLY. STATES DOES HAVE CHRONIC BACK PAIN AND CHRONIC NAUSEA. MED PER EMAR. H/R IRREG, NO MURMUR NOTED. PER TELE. NSR AT 68 WITH BBB AND PAC'S. LUNGS LIGHTLY COARSE AND WHEEZY T/O. WILL GIVE PREDISONE PER EMAR. ON 4L O2. PT STATES LAST BM LAST NITES. NORMAL. VOIDS PURWICK. YELLOW FLUID IN COLLECTION CHAMB ER. 2 MAX ASST TO GET OOB. BED IN LOW POSITION, CALL LITE IN REACH, CALLS APPOP. .
--- NOTE | 2022-07-13 10:19 | NUR ---
PT STATES STOMACH SOME UPSET. REQUEST REGLAN. DISCUSSED FURTHER. SHE STATES IS SOME HEARTBURN, STATES TUMS DOES NOT HELP. STATES REGLAN DOES HELP THIS. ALSO REQUEST MUCINEX. WILL GIVE REQUESTED
--- NOTE | 2022-07-13 17:21 | NUR ---
PT O2 WAS AT 4L. SATS 95-96%. TURNED DOWN TO 3L. MAINTAINING SAME. ADVISED PT TO CALL IF CONT BIOX BEEPS.
--- NOTE | 2022-07-13 18:13 | NUR ---
PT DOING OKAY TODAY. DID TURN DOWN O2 TO 3L THIS KATHLEEN. SATS MAINTAINING AT 93-95%. PT STATES NO NEW CONCERNS NOTED TODAY. PAIN MANAGED WITH AVAIL MEDS. NAUSEA HANDELED WITH AVAIL MEDS. STATES WOULD BE FINE TO RETURN TO PO NAUSEA MEDS./ WILL DISCUSS WITH DR TOMORROW WHEN SEE. NO OTHER CONCERNS NOTED. BED IN LOW POSITION, CALL LITE IN REACH, CALLS APPROP
[2022-07-14 05:09] LABS: Bun/Creatinine Ratio 28.7 (12.0-20.0); Creatinine, Blood 0.59 mg/dL (0.40-1.00); Potassium, Blood 4.1 mmol/L (3.5-5.5)
--- NOTE | 2022-07-14 06:16 | NUR ---
SHIFT SUMMARY NOC PT A/OX4. PT WAS IRRITABLE DURING SHIFT. PT HAD C/O OF HER MEDICATIONS FROM HOME BEING CHANGED AND HOW SHE WAS ALLOWED TO TAKE THEM. AN ORDER WAS OBTAINED FOR PO REGLAN AND ZOFRAN. THE PT IN STILL ON TELE WITH SR/74 WITH PAC'S, AND BBB. PT HAD 12 SEC RUN OF SVT IN 140'S. PT AM LABS SHOW SODIUM UP 131 FROM 130 PREVIOUS DAY. PT NICOTINE PATCH WAS REMOVED BECAUSE IT WAS PARTIALLY OFF. ORDER WAS OBTAINED FOR 14MG PATCH ONE TIME TO GET PT TO NEXT PATCH SCHEDULED. PT IS CURRENTLY RESTING IN BED WITH BED RAILS UP BED ALARM ON, BED IN LOWEST POSITION, AND CALL LIGHT WITHIN REACH.
--- NOTE | 2022-07-14 17:26 | NUR ---
PT STATES FEELS SOME BETTER WITH LUMPING MEDS TOGETHER NOW. STATES DOES THIS AT HOME. HAS DONE SO FOR YEARS. GOT UP WITH PT/OT TODAY. ABLE TO AMBULATE 1 ASST FWW G/B TO DOOR AND BACK. HAS BEEN UP IN CHAIR FOR OVER AN HOUR THIS AFT. NO NEW CONCERNS NOTED. BED IN LOW POSITIOIN, CALL LITE IN REACH, CALLS APPROP
--- NOTE | 2022-07-15 03:32 | NUR ---
SHIFT SUMMARY NOC PT A/OX4. PT HAD BETTER NIGHT TONIGHT THAN PREVIOUS AFTER PROVIDER OK'D LUMPING OF MEDS TOGETHER. SHE HAS DONE SO FOR YEARS. PT STILL ON O2 2L/NC SPON 97%. PT PUREWICK SUCTIONING TOTH YELLOW URINE. NO ACUTE CHANGES THIS SHIFT. PT SLEPT AFTER 2100 RX PASS AND WOKE UP FOR Q6H RX AND WENT BACK TO SLEEP. PT IS CURRENTLY RESTING WITH BED RAILS UP, BED IN LOWEST POSITION, AND CALL LIGHT WITHIN REACH.
[2022-07-15 04:32] LABS: Base Excess Venous 9.7 mmol/L; Bicarbonate Venous 32.4 mmol/L (24.0-30.0); PCO2 Venous 44.1 mmHg (38-42); pH Blood Venous 7.49 (7.34-7.37)
[2022-07-15 05:18] LABS: Bun/Creatinine Ratio 29.2 (12.0-20.0); Calcium, Blood 8.7 mg/dL (8.5-10.1); Creatinine, Blood 0.55 mg/dL (0.40-1.00)
[2022-07-15] MEDS ORDERED: DELTASONE20 MG PO (16:47)
--- NOTE | 2022-07-15 18:31 | NUR ---
DISCHARGE SUMMARY PATIENT ALERT AND ORIENTED THROUGHOUT SHIFT. SBA IN ROOM WITH FWW TO BSC. HOME O2 EVAL FOR 2L VIA NC. DISCHARGE ORDERS OBTAINED. DISCHARGE EDUCATION GIVEN ON NEW MEDS, HOME O2, AND FOLLOW UP APPTS. IV DC'D WNL. WAITING FOR MEDICAL TRANSPORT AT THIS TIME.
--- NOTE | 2022-07-15 18:43 | NUR ---
PATIENT LEFT UNIT AT 1835 VIA MEDICAL TRANSPORT FOR HOME.
== END 2022-07-15 18:44 | DRG 643 ==
LOC: ER 11:56 → MEDS 15:50
PROVIDERS: Family Medicine; Hospitalist; Nurse Practitioner Acute Care; Student in an Organized Health Care Education/Training Program; ADMIT Internal Medicine
DX: E22.2 Syndrome of inappropriate secretion of antidiuretic hormone (principal); J96.01 Acute respiratory failure with hypoxia; F11.20 Opioid dependence, uncomplicated; J44.1 Chronic obstructive pulmonary disease with (acute) exacerbation; K59.00 Constipation, unspecified; G89.29 Other chronic pain; E11.9 Type 2 diabetes mellitus without complications; K21.9 Gastro-esophageal reflux disease without esophagitis; Z66 Do not resuscitate; F41.9 Anxiety disorder, unspecified; I10 Essential (primary) hypertension; R63.1 Polydipsia; E03.9 Hypothyroidism, unspecified; F17.210 Nicotine dependence, cigarettes, uncomplicated; M54.50 Low back pain, unspecified; K59.03 Drug induced constipation; Z20.822 Contact with and (suspected) exposure to COVID-19; F10.10 Alcohol abuse, uncomplicated; E66.9 Obesity, unspecified; M79.606 Pain in leg, unspecified; F32.A Depression, unspecified; E86.0 Dehydration; Z88.2 Allergy status to sulfonamides; Z79.899 Other long term (current) drug therapy; Z79.51 Long term (current) use of inhaled steroids; Z79.01 Long term (current) use of anticoagulants; Z79.811 Long term (current) use of aromatase inhibitors; Z79.84 Long term (current) use of oral hypoglycemic drugs; Z90.710 Acquired absence of both cervix and uterus; Z90.722 Acquired absence of ovaries, bilateral; Z90.49 Acquired absence of other specified parts of digestive tract; Z98.890 Other specified postprocedural states; Z68.33 Body mass index [BMI] 33.0-33.9, adult
CPT/HCPCS: 0241U; 36415; 71045; 80048; 80053; 82533; 82803; 83735; 83930; 83935; 84295; 84300; 84439; 84443; 85025; 93005; 93010; 94640; 94664; 94760; 94761; 94762; 96374; 97116; 97161; 99285-25; A9270; J1170; J1650; J1885; J2405; J2765; J3010; J7030; J7040; J7512

== ENCOUNTER 2022-08-16 16:36 | Observation (INO) | payer MEDICARE, OTHER ==
[~2022-08-16] VITALS: Ht 152.4 cm; Wt 77.1 kg
[~2022-08-16 16:36] MED LIST changes: +DELTASONE20 MG PO; +FURO20 PO; +LACT10SY PO; +MUPIROCIN15 GM TOP; +POTA10T PO; +PREMARIN VAG; +SYMBICORT 160-4.6 GM INH
[2022-08-16 18:36] LABS: Influenza A, PCR NEGATIVE (NEGATIVE); Influenza B, PCR NEGATIVE (NEGATIVE); Resp Syncytial Virus, PCR NEGATIVE (NEGATIVE); SARS-Cov-2 (COVID-19) PCR, MMC NEGATIVE (NEGATIVE)
[2022-08-16 18:49] LABS: Albumin, Blood 3.4 g/dL (3.4-5.0); Bilirubin, Total 0.4 mg/dL (0.1-1.0); Bun/Creatinine Ratio 14.6 (12.0-20.0); Calcium, Blood 8.7 mg/dL (8.5-10.1); Creatinine, Blood 0.82 mg/dL (0.40-1.00); Globulin, Blood 3.5 g/dL (2.2-4.0); Potassium, Blood 4.5 mmol/L (3.5-5.5); Total Protein, Blood 6.9 g/dL (6.4-8.2)
[2022-08-16 18:49] LABS: BASOPHILS ABSOLUTE AUTO 0.07 K/mm3 (0.00-0.23); BASOPHILS PERCENT AUTO 1 % (0-2); EOSINOPHILS ABSOLUTE AUTO 0.15 K/mm3 (0.00-0.68); EOSINOPHILS PERCENT AUTO 2 % (0-6); Hematocrit 32.8 % (33.0-51.0); Hemoglobin 11.7 g/dL (11.5-16.0); IMMATURE GRAN ABSOLUTE AUTO 0.06 K/mm3 (0.00-0.10); IMMATURE GRAN PERCENT AUTO 1 % (0-1); LYMPHOCYTES PERCENT AUTO 24 % (21-46); MONOCYTES ABSOLUTE AUTO 1.18 K/mm3 (0.16-1.47); MONOCYTES PERCENT AUTO 14 % (4-13); Mean Corpuscular HGB 34.2 pg (26.0-34.0); Mean Corpuscular HGB Conc 35.7 g/dL (31.5-36.5); Mean Corpuscular Volume 96 fL (80-100); Mean Platelet Volume 8.4 fL (9.1-12.4); NEUTROPHILS ABSOLUTE AUTO 5.07 K/mm3 (1.96-9.15); NEUTROPHILS PERCENT AUTO 59 % (41-73); Platelet Count 334 K/mm3 (150-400); RDW Coefficient Variation 11.9 % (11.7-14.2); Red Blood Cell Count 3.42 M/mm3 (3.80-5.20); White Blood Cell Count 8.63 K/mm3 (4.00-11.30)
[2022-08-16 22:25] LABS: Free Thyroxine 1.31 ng/dL (0.70-1.60)
[2022-08-16 22:27] LABS: Thyroid Stimulating Hormone 1.23 uIU/mL (0.360-4.800)
--- NOTE | 2022-08-17 02:33 | NUR ---
NEW ADMIT FROM ED. A&O X4. VSS. C/O PAIN 05/27 TO RT HIP. MEDICATED WITH PRN PAIN MED PER MD ORDER. ON BEDREST, PUREWICK IN PLACE. SKIN ASSESSMENT COMPLETED WITH INGE Camara RN. PT HAS ABRASION TO RT HIP FROM HER FALL. PHOTOS TAKEN AND PLACED IN CHART. BED ALARM ON.
[2022-08-17 05:27] LABS: BASOPHILS ABSOLUTE AUTO 0.07 K/mm3 (0.00-0.23); BASOPHILS PERCENT AUTO 1 % (0-2); EOSINOPHILS ABSOLUTE AUTO 0.12 K/mm3 (0.00-0.68); EOSINOPHILS PERCENT AUTO 2 % (0-6); Hematocrit 31.9 % (33.0-51.0); Hemoglobin 11.5 g/dL (11.5-16.0); IMMATURE GRAN ABSOLUTE AUTO 0.05 K/mm3 (0.00-0.10); IMMATURE GRAN PERCENT AUTO 1 % (0-1); LYMPHOCYTES ABSOLUTE AUTO 1.48 K/mm3 (0.84-5.20); LYMPHOCYTES PERCENT AUTO 22 % (21-46); MONOCYTES ABSOLUTE AUTO 1.12 K/mm3 (0.16-1.47); MONOCYTES PERCENT AUTO 16 % (4-13); Mean Corpuscular HGB 34.4 pg (26.0-34.0); Mean Corpuscular HGB Conc 36.1 g/dL (31.5-36.5); Mean Corpuscular Volume 96 fL (80-100); Mean Platelet Volume 8.3 fL (9.1-12.4); NEUTROPHILS ABSOLUTE AUTO 4.05 K/mm3 (1.96-9.15); NEUTROPHILS PERCENT AUTO 59 % (41-73); Platelet Count 333 K/mm3 (150-400); RDW Coefficient Variation 11.9 % (11.7-14.2); RDW Standard Deviation 41.6 fL (35.1-46.3); Red Blood Cell Count 3.34 M/mm3 (3.80-5.20); White Blood Cell Count 6.89 K/mm3 (4.00-11.30)
[2022-08-17 06:03] LABS: Albumin, Blood 2.9 g/dL (3.4-5.0); Albumin/Globulin Ratio 0.9 (0.8-1.8); Bilirubin, Total 0.6 mg/dL (0.1-1.0); Calcium, Blood 8.9 mg/dL (8.5-10.1); Creatinine, Blood 0.71 mg/dL (0.40-1.00); Globulin, Blood 3.4 g/dL (2.2-4.0); Potassium, Blood 4.6 mmol/L (3.5-5.5); Total Protein, Blood 6.3 g/dL (6.4-8.2)
--- NOTE | 2022-08-17 18:09 | NUR ---
PT IS ALERT AND ORIENTED X4. PT USES A WHEELCHAIR AT BASELINE. PT HAS A PURWICK TO ASSIST WITH URINARY INCONTENENCE. RN WAS NOTIFIED ABOUT PT HEART RATE TRENDING UP THROUGHOUT THE MORNING. PHYSICAL THERAPY CAME TO ASSESS PT AND NOTED THAT PT HEART RATE JUMPED UP TO 127 WHEN STANDING. THE PHYSICAL THERAPIST THEN ENDED THE SESSION AND THE MD WAS NOTIFIED. SEE EMAR FOR UPDATED MEDICATIONS ORDERED. RN SPOKE TO REGNIA FROM [facility] TO ARRANGE D/C TO THE FACILITY TOMORROW 08/18/22. PT IS RESTING IN BED AND APPEARS TO BE COMFORTABLE. BED IS LOWEST POSITION AND CALL LIGHT IS IN REACH.
--- NOTE | 2022-08-18 04:22 | NUR ---
SHIFT SUMMARY; NO ACUTE CHANGES OVERNIGHT. THE PT RESTED IN BED T/O THE NIGHT. REQUESTED PRN PAIN MEDS, PT STATES SHE TAKES ALL FOUR PAIN MEDS AT ONCE AT HOME. PT ON 2L NC PRESENTLY WITH O2 SATS GREATER THAN 92%, 2L NC IS THE PTS BASELINE. PT WAS ABLE TO GET UP WITH A 1 PERSON ASSIST AND THE USE OF A FWW TO USE THE BSC LAST NIGHT. CURRENLTY THE PT IS RESTING IN BED WITH THE BED IN THE LOWEST POSITION AND THE CALL LIGHT AT BEDSIDE. DC COORDINATION WITH PTS [facility] IS IN PROCESS.
[2022-08-18 05:34] LABS: BASOPHILS ABSOLUTE AUTO 0.02 K/mm3 (0.00-0.23); BASOPHILS PERCENT AUTO 0 % (0-2); EOSINOPHILS ABSOLUTE AUTO 0.01 K/mm3 (0.00-0.68); EOSINOPHILS PERCENT AUTO 0 % (0-6); Hematocrit 32.8 % (33.0-51.0); Hemoglobin 11.7 g/dL (11.5-16.0); IMMATURE GRAN ABSOLUTE AUTO 0.07 K/mm3 (0.00-0.10); IMMATURE GRAN PERCENT AUTO 1 % (0-1); LYMPHOCYTES ABSOLUTE AUTO 0.76 K/mm3 (0.84-5.20); LYMPHOCYTES PERCENT AUTO 15 % (21-46); MONOCYTES ABSOLUTE AUTO 0.32 K/mm3 (0.16-1.47); MONOCYTES PERCENT AUTO 6 % (4-13); Mean Corpuscular HGB Conc 35.7 g/dL (31.5-36.5); Mean Corpuscular Volume 95 fL (80-100); Mean Platelet Volume 8.4 fL (9.1-12.4); NEUTROPHILS ABSOLUTE AUTO 4.07 K/mm3 (1.96-9.15); NEUTROPHILS PERCENT AUTO 78 % (41-73); Platelet Count 294 K/mm3 (150-400); RDW Coefficient Variation 11.8 % (11.7-14.2); RDW Standard Deviation 41.2 fL (35.1-46.3); Red Blood Cell Count 3.44 M/mm3 (3.80-5.20); White Blood Cell Count 5.25 K/mm3 (4.00-11.30)
[2022-08-18 05:53] LABS: Bun/Creatinine Ratio 21.8 (12.0-20.0); Calcium, Blood 8.7 mg/dL (8.5-10.1); Creatinine, Blood 0.64 mg/dL (0.40-1.00); Potassium, Blood 4.5 mmol/L (3.5-5.5)
[2022-08-18] MEDS ORDERED: SODCHL1 PO (13:40)
--- NOTE | 2022-08-18 16:41 | NUR ---
Patient doing well this shift, will be discharged home today. New orders to take sodium tablets, faxed med rec to [facility]. Adult foster home notified of patients discharge, discharge paperwork and medication list sent with patient. Transport came at 1630 and took patient home.
[2022-09-03] MEDS ORDERED: Acetaminophen650 M1 PO (22:52)
[2022-09-03] MEDS ORDERED: ANTIFUNGAL TOP (22:52)
[2022-09-03] MEDS ORDERED: [UNRECOGNIZED DRUG - OTHER] TOP (22:54)
[2022-09-03] MEDS ORDERED: FURO20 PO (22:57)
[2022-09-03] MEDS ORDERED: PRAHYD1AE TOP (22:58)
[2022-09-03] MEDS ORDERED: METOCLOPRAMIDE H5 M1 PO (23:00)
[2022-09-03] MEDS ORDERED: NICO21TP TOP (23:01)
[2022-09-03] MEDS ORDERED: NYSTRIT TOP (23:06)
[2022-09-03] MEDS ORDERED: Pepto-Bismol262 M1 PO (23:06)
[2022-09-03] MEDS ORDERED: TIOT18 INH (23:07)
[2022-09-03] MEDS ORDERED: PRED20 PO (23:07)
[2022-09-03] MEDS ORDERED: Ventolin/Prove6.7 GM INH (23:07)
[2022-09-03] MEDS ORDERED: PROBIOTIC1 EA13 PO (23:07)
[2022-09-03] MEDS ORDERED: SUBOXONE 8 MG-1 EACH SL (23:08)
[2022-09-05] MEDS ORDERED: BANATROL PLUS1 EAC1 PO (23:17)
[2022-09-05] MEDS ORDERED: BUDESONIDE-FO10.2 G2 INH (23:17)
[2022-09-05] MEDS ORDERED: BUSP10 PO (23:18)
[2022-09-05] MEDS ORDERED: Calcium Carbon500 MG PO (23:19)
[2022-09-05] MEDS ORDERED: IBUP400 PO (23:21)
[2022-09-05] MEDS ORDERED: LACT10SY PO (23:21)
[2022-09-05] MEDS ORDERED: METF500 PO (23:22)
[2022-09-05] MEDS ORDERED: SODCHL1 PO (23:24)
[2022-09-05] MEDS ORDERED: BUPRENO-NALOX1 EAC2 SL (23:27)
[2022-09-06] MEDS ORDERED: BISM300CH PO (15:24)
[2022-09-06] MEDS ORDERED: FURO20 PO (15:27)
[2022-09-06] MEDS ORDERED: TIOT18 INH (15:33)
== END 2022-08-18 16:34 | disposition home or self-care (01) ==
LOC: ER 16:36 → MEDS 16:37
PROVIDERS: Family Medicine; Student in an Organized Health Care Education/Training Program; ADMIT Internal Medicine
DX: E87.1 Hypo-osmolality and hyponatremia (principal); Z20.822 Contact with and (suspected) exposure to COVID-19; J44.9 Chronic obstructive pulmonary disease, unspecified; M25.551 Pain in right hip; E03.9 Hypothyroidism, unspecified; I10 Essential (primary) hypertension; F32.A Depression, unspecified; E11.9 Type 2 diabetes mellitus without complications
CPT/HCPCS: 0241U; 36415; 71046; 73502; 80048; 80053; 82947; 83880; 84439; 84443; 84484; 85025; 93005; 93010; 94640; 94644; 94664; 94760; 96372; 96374; 96375; 96376; 97110; 97116; 97161; 97530; 99285-25; A9270; G0378; J1650; J1885; J2270; J2405; J3010; J7030; J7512

== ENCOUNTER → 2022-08-29 | Outpatient (CLI) | payer MEDICARE, OTHER ==
[~2022-08-29] MED LIST changes: +LIDOCAINE1 EAC1 TOP; +SODCHL1 PO
[2022-08-29 22:20] LABS: Bun/Creatinine Ratio 15.8 (12.0-20.0); Calcium, Blood 8.6 mg/dL (8.5-10.1); Creatinine, Blood 0.76 mg/dL (0.40-1.00); Potassium, Blood 4.6 mmol/L (3.5-5.5)
== END | disposition home or self-care (01) ==
LOC: LAB SHORT 12:00 → LAB 12:00
PROVIDERS: Family Medicine
DX: E87.1 Hypo-osmolality and hyponatremia (principal)
CPT/HCPCS: 80048

== ENCOUNTER 2022-09-01 00:36 | Emergency (ER) | payer MEDICARE, OTHER ==
[~2022-09-01] VITALS: Ht 152.4 cm; Wt 77.1 kg
[~2022-09-01 00:36] MED LIST changes: -LIDOCAINE1 EAC1 TOP
[2022-09-01 01:49] LABS: BASOPHILS ABSOLUTE AUTO 0.08 K/mm3 (0.00-0.23); BASOPHILS PERCENT AUTO 1 % (0-2); EOSINOPHILS ABSOLUTE AUTO 0.24 K/mm3 (0.00-0.68); EOSINOPHILS PERCENT AUTO 3 % (0-6); Hematocrit 35.7 % (33.0-51.0); Hemoglobin 12.3 g/dL (11.5-16.0); IMMATURE GRAN ABSOLUTE AUTO 0.08 K/mm3 (0.00-0.10); IMMATURE GRAN PERCENT AUTO 1 % (0-1); LYMPHOCYTES ABSOLUTE AUTO 1.37 K/mm3 (0.84-5.20); LYMPHOCYTES PERCENT AUTO 14 % (21-46); MONOCYTES ABSOLUTE AUTO 1.42 K/mm3 (0.16-1.47); MONOCYTES PERCENT AUTO 15 % (4-13); Mean Corpuscular HGB 34.2 pg (26.0-34.0); Mean Corpuscular HGB Conc 34.5 g/dL (31.5-36.5); Mean Corpuscular Volume 99 fL (80-100); Mean Platelet Volume 8.6 fL (9.1-12.4); NEUTROPHILS ABSOLUTE AUTO 6.47 K/mm3 (1.96-9.15); NEUTROPHILS PERCENT AUTO 67 % (41-73); Platelet Count 270 K/mm3 (150-400); RDW Coefficient Variation 12.2 % (11.7-14.2); RDW Standard Deviation 44.5 fL (35.1-46.3); White Blood Cell Count 9.66 K/mm3 (4.00-11.30)
[2022-09-01 02:17] LABS: Albumin, Blood 3.5 g/dL (3.4-5.0); Albumin/Globulin Ratio 0.9 (0.8-1.8); Bilirubin, Total 0.7 mg/dL (0.1-1.0); Bun/Creatinine Ratio 16.3 (12.0-20.0); Calcium, Blood 8.9 mg/dL (8.5-10.1); Creatinine, Blood 0.68 mg/dL (0.40-1.00); Potassium, Blood 4.8 mmol/L (3.5-5.5); Total Protein, Blood 7.5 g/dL (6.4-8.2)
[2022-09-01] MEDS ORDERED: LIDOCAINE1 EAC1 TOP (02:36)
== END 2022-09-01 04:31 | disposition home or self-care (01) ==
LOC: ER 00:36
PROVIDERS: Physician Assistant
DX: S20.212A Contusion of left front wall of thorax, initial encounter (principal); W19.XXXA Unspecified fall, initial encounter; G89.29 Other chronic pain; E87.1 Hypo-osmolality and hyponatremia; J44.9 Chronic obstructive pulmonary disease, unspecified; E11.9 Type 2 diabetes mellitus without complications; I10 Essential (primary) hypertension; E03.9 Hypothyroidism, unspecified; Z88.2 Allergy status to sulfonamides; Z79.899 Other long term (current) drug therapy; Z79.84 Long term (current) use of oral hypoglycemic drugs; Z87.891 Personal history of nicotine dependence
CPT/HCPCS: 71046; 80053; 85025; 93005; 93010; A9270; J1885

== ENCOUNTER → 2022-09-19 | Outpatient (CLI) | payer MEDICARE, OTHER ==
[~2022-09-19] MED LIST changes: +ANTIFUNGAL TOP; +Acetaminophen650 M1 PO; +BISM300CH PO; +BUDESONIDE-FO10.2 G2 INH; +BUPRENO-NALOX1 EAC2 SL; +BUSP10 PO; +Calcium Carbon500 MG PO; +LIDOCAINE1 EAC1 TOP; +METOCLOPRAMIDE H5 M1 PO; +NICO21TP TOP; +NYSTRIT TOP; +PRAHYD1AE TOP; +PRED20 PO; +PROBIOTIC1 EA13 PO; +Pepto-Bismol262 M1 PO; +SUBOXONE 8 MG-1 EACH SL; +[UNRECOGNIZED DRUG - OTHER] TOP
[2022-09-19 19:18] LABS: Hematocrit 44.5 % (33.0-51.0); Hemoglobin 16.4 g/dL (11.5-16.0); Mean Corpuscular HGB Conc 36.9 g/dL (31.5-36.5); Mean Corpuscular Volume 92 fL (80-100); Mean Platelet Volume 9.7 fL (9.1-12.4); Platelet Count 452 K/mm3 (150-400); RDW Coefficient Variation 11.9 % (11.7-14.2); RDW Standard Deviation 40.3 fL (35.1-46.3); Red Blood Cell Count 4.82 M/mm3 (3.80-5.20)
[2022-09-19 19:51] LABS: BASOPHILS ABSOLUTE MAN 0.15 K/mm3 (0.00-0.23); BASOPHILS PERCENT MAN 1 % (0-2); EOSINOPHILS PERCENT MAN 0 % (0-6); LYMPHOCYTES ABSOLUTE MAN 2.48 K/mm3 (0.84-5.20); LYMPHOCYTES PERCENT MAN 16 % (21-46); MONOCYTES ABSOLUTE MAN 1.86 K/mm3 (0.16-1.47); MONOCYTES PERCENT MAN 12 % (4-13); SEG NEUTROPHILS PERCENT MAN 71 % (41-73); TOTAL CELLS COUNTED 100
[2022-09-19 22:06] LABS: Albumin/Globulin Ratio 1.1 (0.8-1.8); Bilirubin, Total 0.9 mg/dL (0.1-1.0); Bun/Creatinine Ratio 18.9 (12.0-20.0); Calcium, Blood 9.6 mg/dL (8.5-10.1); Creatinine, Blood 0.74 mg/dL (0.40-1.00); Globulin, Blood 3.8 g/dL (2.2-4.0); Percent Saturation 32.8 % (15.0-50.0); Thyroid Stimulating Hormone 0.262 uIU/mL (0.360-4.800); Total Protein, Blood 7.8 g/dL (6.4-8.2)
== END | disposition home or self-care (01) ==
LOC: LAB 10:00 → LAB SHORT 10:00
PROVIDERS: Family Medicine
DX: E87.1 Hypo-osmolality and hyponatremia (principal); D64.9 Anemia, unspecified; R53.83 Other fatigue
CPT/HCPCS: 80053; 82728; 83540; 83550; 84443; 85025

== ENCOUNTER → 2022-10-25 | Outpatient (CLI) | payer MEDICARE, OTHER | END | disposition home or self-care (01) | LOC: LAB 18:34 → LAB SHORT 18:34 | DX: R30.0 Dysuria (principal) | CPT/HCPCS: 87086 ==

== ENCOUNTER → 2022-11-15 | Outpatient (CLI) | payer MEDICARE, OTHER ==
[2022-11-15 18:59] LABS: Bun/Creatinine Ratio 14.8 (12.0-20.0); Calcium, Blood 9.1 mg/dL (8.5-10.1); Creatinine, Blood 0.54 mg/dL (0.40-1.00)
== END ==
LOC: LAB SHORT 10:10 → LAB 10:10
PROVIDERS: Family Medicine
DX: R30.0 Dysuria (principal)
CPT/HCPCS: 80048

== ENCOUNTER → 2022-12-10 | Outpatient (CLI) | payer MEDICARE, OTHER | END | disposition home or self-care (01) | LOC: LAB SHORT 10:20 → LAB 10:20 | DX: R30.0 Dysuria (principal) | CPT/HCPCS: 87077; 87086; 87186 ==

== ENCOUNTER → 2023-01-02 | Outpatient (CLI) | payer MEDICARE, OTHER ==
[2023-01-02 19:29] LABS: Bun/Creatinine Ratio 18.7 (12.0-20.0); Calcium, Blood 9.3 mg/dL (8.5-10.1); Creatinine, Blood 0.53 mg/dL (0.40-1.00); Potassium, Blood 4.2 mmol/L (3.5-5.5)
== END | disposition home or self-care (01) ==
LOC: LAB 18:38 → LAB SHORT 18:38
PROVIDERS: Family Medicine
DX: E87.1 Hypo-osmolality and hyponatremia (principal)
CPT/HCPCS: 80048